=== PATIENT | male | born 1945 | race Caucasian/White ===

== ENCOUNTER → 2018-01-06 10:52 | Outpatient (CLI) | payer MEDICARE, OTHER, SELFPAY | PROVIDERS: PCP Family Medicine; Visit Provider Urology | DX: R97.20 Elevated prostate specific antigen [PSA] (principal); N40.1 Benign prostatic hyperplasia with lower urinary tract symptoms | CPT/HCPCS: 36415; 84153 ==

== ENCOUNTER → 2018-06-01 14:17 | Outpatient (CLI) | payer MEDICARE, OTHER, SELFPAY | PROVIDERS: Family Provider Family Medicine; PCP Family Medicine; Visit Provider Urology | DX: R97.20 Elevated prostate specific antigen [PSA] (principal) | CPT/HCPCS: 36415; 84153 ==

== ENCOUNTER → 2018-11-15 09:10 | Outpatient (CLI) | payer MEDICARE, OTHER, SELFPAY ==
[2018-11-15 10:22] LABS: Hematocrit 45.8 % (41-53); Hemoglobin 15.5 g/dL (13.5-17.5); Mean Corpuscular HGB Conc 33.9 % (30-36); Mean Corpuscular Hemoglobin 30.2 PG (26-34); Mean Corpuscular Volume 89.2 fL (80-100); Platelet Count 107 X10^3/uL (150-400); Red Blood Cell Count 5.13 X10^6/uL (4.5-5.9); White Blood Cell Count 4.2 X10^3/uL (4.5-11.0)
[2018-11-15 11:05] LABS: Alanine Aminotransferase 23 IU/L (21-72); Albumin 4.6 g/dL (3.5-5.0); Albumin Globulin Ratio 1.5 (1.0-2.8); Alkaline Phosphatase 60 U/L (38-126); Aspartate Aminotransferase 27 IU/L (17-59); BUN Creatinine Ratio 17.3 (6-22); Bilirubin Total 0.6 mg/dL (0.2-1.3); Blood Urea Nitrogen 19 mg/dL (9-20); Calcium 9.5 mg/dL (8.4-10.2); Carbon Dioxide 22 mmol/L (22-32); Chloride 107 mmol/L (98-107); Cholesterol 214 mg/dL (140-199); Estimated Glomerular Filt Rate > 60.0 mL/min (>60); Glucose 96 mg/dL (80-110); HDL Cholesterol 52 mg/dL (40-60); HEMOLYSIS < 15 (0-50); LDL Cholesterol Calculated 141 mg/dL (<100); Potassium 4.2 mmol/L (3.4-5.1); Sodium 140 mmol/L (137-145); Total Protein 7.6 g/dL (6.3-8.2); Triglycerides 107 mg/dL (35-150)
[2018-11-15 12:11] LABS: Free T4, Direct Thyroxine 0.88 ng/dL (0.78-2.19)
[2018-11-15 12:38] LABS: RBC Morphology Normal Morphology
== END ==
PROVIDERS: PCP Family Medicine; Visit Provider Family Medicine
DX: E03.9 Hypothyroidism, unspecified (principal); E78.5 Hyperlipidemia, unspecified; I10 Essential (primary) hypertension; I48.91 Unspecified atrial fibrillation
CPT/HCPCS: 36415; 80053; 80061; 84439; 84443; 85025

== ENCOUNTER → 2019-05-10 15:58 | Outpatient (CLI) | payer MEDICARE, OTHER, SELFPAY ==
[2019-05-10 17:22] LABS: Prostate Specific Antigen 3.26 ng/mL (0.10-4.00)
== END ==
PROVIDERS: PCP Family Medicine; Visit Provider Urology
DX: R97.20 Elevated prostate specific antigen [PSA] (principal); N40.1 Benign prostatic hyperplasia with lower urinary tract symptoms
CPT/HCPCS: 36415; 84153

== ENCOUNTER → 2019-05-14 16:48 | Outpatient (CLI) | payer MEDICARE, OTHER, SELFPAY ==
[2019-05-14 17:57] LABS: Alanine Aminotransferase 31 IU/L (<50); Albumin 4.6 g/dL (3.5-5.0); Albumin Globulin Ratio 1.8 (1.0-2.8); Alkaline Phosphatase 66 U/L (38-126); Aspartate Aminotransferase 32 IU/L (17-59); Bilirubin Total 0.3 mg/dL (0.2-1.3); Blood Urea Nitrogen 30 mg/dL (9-20); Calcium 9.7 mg/dL (8.4-10.2); Carbon Dioxide 27 mmol/L (22-32); Chloride 104 mmol/L (98-107); Estimated Glomerular Filt Rate 59.5 mL/min (>60); Globulin 2.6 g/dL (1.7-4.1); Glucose 90 mg/dL (80-110); HEMOLYSIS < 15 (0-50); Potassium 4.1 mmol/L (3.4-5.1); Sodium 140 mmol/L (137-145); Total Protein 7.2 g/dL (6.3-8.2)
== END ==
PROVIDERS: Family Provider Family Medicine; PCP Family Medicine; Visit Provider Nurse Practitioner Acute Care
DX: I48.0 Paroxysmal atrial fibrillation (principal)
CPT/HCPCS: 36415; 80053

== ENCOUNTER → 2020-05-24 07:55 | Outpatient (CLI) | payer MEDICARE, OTHER, SELFPAY ==
[2020-05-24 08:18] LABS: Bacteria Urine None Seen; RBC Urine None Seen (0-5/HPF); WBC Urine None Seen (0-5/HPF)
[2020-05-24 08:58] LABS: Appearance Urine UA CLEAR; Bilirubin Urine UA NEGATIVE (NEGATIVE); Color Urine UA YELLOW; Glucose Urine UA NEGATIVE (Negative); Ketones Urine UA NEGATIVE (NEGATIVE); Leukocyte Esterase Urine UA NEGATIVE (NEGATIVE); Nitrite Urine UA NEGATIVE (Negative); Occult Blood Urine UA TRACE-INTACT (Negative); Protein Urine UA TRACE (Negative); Urobilinogen Urine UA 0.2 E.U./dL (0.2)
[2020-05-24 09:15] LABS: Alanine Aminotransferase 610 IU/L (<50); Albumin 4.4 g/dL (3.5-5.0); Albumin Globulin Ratio 1.4 (1.0-2.8); Alkaline Phosphatase 233 U/L (38-126); Aspartate Aminotransferase 263 IU/L (17-59); Bilirubin Total 0.9 mg/dL (0.2-1.3); Blood Urea Nitrogen 15 mg/dL (9-20); C-Reactive Protein Quant 2.6 mg/dL (<1.0); Calcium 9.3 mg/dL (8.4-10.2); Carbon Dioxide 27 mmol/L (22-32); Chloride 103 mmol/L (98-107); Cholesterol 222 mg/dL (140-199); Estimated Glomerular Filt Rate > 60.0 mL/min (>60); Globulin 3.2 g/dL (1.7-4.1); Glucose 112 mg/dL (80-110); HDL Cholesterol 68 mg/dL (40-60); HEMOLYSIS < 15 (0-50); LDL Cholesterol Calculated 138 mg/dL (<100); Potassium 3.9 mmol/L (3.4-5.1); Sodium 135 mmol/L (137-145); Total Protein 7.6 g/dL (6.3-8.2); Triglycerides 82 mg/dL (35-150)
[2020-05-24 09:17] LABS: Add Manual Diff / Slide Review NO; Basophils Absolute Auto 0 /uL (0-100); Basophils Percent Auto 0.1 % (0-2); Eosinophils Absolute Auto 0 /uL (0-450); Hematocrit 44.8 % (41-53); Hemoglobin 15.4 g/dL (13.5-17.5); Lymphocytes Absolute Auto 500 /uL (1100-4500); Lymphocytes Percent Auto 11.6 % (25-40); Mean Corpuscular HGB Conc 34.5 % (30-36); Mean Corpuscular Hemoglobin 30.4 PG (26-34); Mean Corpuscular Volume 88.1 fL (80-100); Monocytes Absolute Auto 1000 /uL (0-900); Monocytes Percent Auto 20.9 % (3-14); Neutrophils Absolute Auto 3000 /uL (1500-7000); Neutrophils Percent Auto 66.4 % (50-75); Red Blood Cell Count 5.08 X10^6/uL (4.5-5.9); Red Cell Distribution Width 13.2 % (11.6-14.8); White Blood Cell Count 4.6 X10^3/uL (4.5-11.0)
[2020-05-24 09:23] LABS: Culture Indicated Urine Cult Not Indicated; Urine Comments Microscopic Normal
[2020-05-24 09:39] LABS: Prostate Specific Antigen Scrn 3.18 ng/mL (0.1-4.0)
[2020-05-24 09:40] LABS: TSH w/ Reflex to FT4 6.39 uIU/mL (0.47-4.68)
[2020-05-24 10:02] LABS: Platelet Count 69 X10^3/uL (150-400)
[2020-05-24 11:09] LABS: Erythrocyte Sedimentation Rate 1 MM/HR (0-15)
[2020-05-24 13:30] LABS: Free T4, Direct Thyroxine 0.98 ng/dL (0.78-2.19)
== END ==
PROVIDERS: Family Provider Family Medicine; PCP Family Medicine; Referring Provider Family Medicine; Visit Provider Family Medicine
DX: E03.9 Hypothyroidism, unspecified (principal); E78.5 Hyperlipidemia, unspecified; Z12.5 Encounter for screening for malignant neoplasm of prostate; I10 Essential (primary) hypertension; I48.91 Unspecified atrial fibrillation; R50.9 Fever, unspecified
CPT/HCPCS: 36415; 80053; 80061; 81001; 84439; 84443; 85025; 85651; 86140; G0103

== ENCOUNTER → 2020-05-27 10:24 | Outpatient (CLI) | payer MEDICARE, OTHER, SELFPAY ==
--- NOTE | 2020-05-27 12:08 | DI.CT.S_ITS ---
PROCEDURE: CT ABDOMEN PELVIS W CON INDICATIONS: abdominal pain,bloating, chills TECHNIQUE: After the administration of oral and intravenous contrast, 5 mm thick sections acquired from the diaphragms to the symphysis. 5 mm thick coronal and sagittal reformats were performed. For radiation dose reduction, the following was used: automated exposure control, adjustment of mA and/or kV according to patient size. COMPARISON: None. FINDINGS: Image quality: Excellent. ABDOMEN: Lung bases: Lung bases are clear. Heart size is normal. Solid organs: Liver is normal in size and enhancement. Gallbladder appears largely contracted but within the gallbladder lumen there appears to be both a combination of sludge and stones, without inflammation Biliary system is non-dilated. Pancreas enhances normally. Spleen is normal in size and enhancement. No adrenal nodules. Kidneys are normal in size and enhancement, without hydronephrosis. Scattered renal cortical cysts, no solid renal mass lesion or calculus is found. Peritoneum and bowel: Stomach, small bowel, and colon loops are normal in caliber and wall thickness. No free fluid or air. Nodes and vessels: No retroperitoneal or mesenteric adenopathy. Aorta and inferior vena cava are normal in caliber. Miscellaneous: No ventral hernias. PELVIS: Genitourinary: Bladder wall thickness is normal. Miscellaneous: No inguinal hernias or adenopathy. Bones: No suspicious bony lesions. No vertebral body compression fractures. IMPRESSION: Contracted gallbladder which contains stones and sludge, but without definite evidence of acute cholecystitis or biliary obstruction. Several scattered simple appearing water density renal cortical cysts are present bilaterally. No urinary tract stone or urinary tract infection is found. Throughout the abdomen and pelvis a source reported pain is not identified. Dictated by: Yaron Benitez M.D. on 05/27/2020 at 13:29 Approved by: Yaron Benitez M.D. on 05/27/2020 at 13:33
== END ==
PROVIDERS: Family Provider Family Medicine; PCP Family Medicine; Referring Provider Family Medicine; Visit Provider Family Medicine
DX: R14.0 Abdominal distension (gaseous) (principal); R68.83 Chills (without fever); K21.9 Gastro-esophageal reflux disease without esophagitis; K80.20 Calculus of gallbladder without cholecystitis without obstruction; N28.1 Cyst of kidney, acquired
CPT/HCPCS: 74177; Q9967

== ENCOUNTER → 2020-05-28 15:44 | Outpatient (CLI) | payer MEDICARE, OTHER, SELFPAY ==
[2020-05-28 17:50] LABS: Erythrocyte Sedimentation Rate 21 MM/HR (0-15)
[2020-05-28 18:21] LABS: Alanine Aminotransferase 241 IU/L (<50); Albumin 4.3 g/dL (3.5-5.0); Albumin Globulin Ratio 1.3 (1.0-2.8); Alkaline Phosphatase 516 U/L (38-126); Amylase 68 U/L (30-110); Aspartate Aminotransferase 87 IU/L (17-59); Bilirubin Total 0.2 mg/dL (0.2-1.3); Bilirubin Unconjugated 0.3 mg/dL (0.0-1.1); C-Reactive Protein Quant 0.8 mg/dL (<1.0); Globulin 3.2 g/dL (1.7-4.1); HEMOLYSIS < 15 (0-50); Lipase 155 U/L (23-300); Total Protein 7.5 g/dL (6.3-8.2)
[2020-05-28 18:51] LABS: Ferritin 53 ng/mL (18-464)
[2020-05-29 08:08] LABS: Ceruloplasmin 32.5 mg/dL (16.0-31.0); HBsAg Screen Negative (Negative); Hepatitis A Antibody IgM Negative (Negative); Hepatitis B Core Antibody IgM Negative (Negative); Hepatitis C Antibody <0.1 s/co ratio (0.0-0.9)
[2020-05-30 14:08] LABS: ANA Screen, IFA Negative (.)
== END ==
PROVIDERS: Family Provider Family Medicine; PCP Family Medicine; Referring Provider Family Medicine; Visit Provider Family Medicine
DX: K82.0 Obstruction of gallbladder (principal); R74.8 Abnormal levels of other serum enzymes; R50.9 Fever, unspecified
CPT/HCPCS: 36415; 80074; 80076; 82150; 82390; 82728; 83690; 85651; 86038; 86140

== ENCOUNTER → 2020-05-30 06:58 | Outpatient (CLI) | payer MEDICARE, OTHER, SELFPAY ==
--- NOTE | 2020-05-30 06:59 | DI.US.S_ITS ---
PROCEDURE: US ABDOMEN COMPLETE INDICATIONS: ELEVATED LIVER ENZYMES; CONTRACTED GALLBLADDER ON CT TECHNIQUE: Real-time scanning was performed of the abdominal and retroperitoneal organs, with image documentation. COMPARISON: None. FINDINGS: Liver: Liver is normal in size and homogeneous in echotexture. Gallbladder: The gallbladder contains numerous stones, including a nonmobile stone measuring approximately 7 mm within the gallbladder neck area. The gallbladder wall however is normal in thickness at 2.5 mm. Biliary ducts: Intrahepatic bile ducts are non-dilated. Extrahepatic bile duct caliber measures 4.9 mm. Normal is 6-7 mm or less in diameter, or 10 mm or less post-cholecystectomy. Pancreas: Visualized portions of the pancreas are sonographically normal. Spleen: Spleen is normal in size and homogeneous in echotexture. Kidneys: Kidneys are normal in size and echotexture. Right kidney measures 12.6 cm long; left kidney measures 13.0 cm long. No hydronephrosis or nephrolithiasis. No solid masses. The largest cyst is present on the right at the mid kidney level, measuring up to 5.6 cm. Aorta: Visualized aorta is normal in caliber at less than 3 cm. Iliacs: Proximal common iliac arteries are normal in caliber at less than 2.5 cm. IVC: Intrahepatic inferior vena cava is patent. Miscellaneous: No free abdominal fluid. IMPRESSION: Multiple stones are identified within the gallbladder lumen, but there is no associated biliary distension or gallbladder wall thickening. Note is made of a relatively large but simple appearing right mid renal cortical cyst measuring up to 5.6 cm. No nephrolithiasis is found. Dictated by: Yaron Benitez M.D. on 05/30/2020 at 10:57 Approved by: Yaron Benitez M.D. on 05/30/2020 at 11:00
== END ==
PROVIDERS: Family Provider Family Medicine; PCP Family Medicine; Referring Provider Family Medicine; Visit Provider Family Medicine
DX: K80.20 Calculus of gallbladder without cholecystitis without obstruction (principal); N28.1 Cyst of kidney, acquired; R74.8 Abnormal levels of other serum enzymes
CPT/HCPCS: 76700

== ENCOUNTER → 2020-06-30 11:24 | Outpatient (CLI) | payer MEDICARE, OTHER, SELFPAY ==
[2020-06-30 12:27] LABS: COVID19 -Nasal RAPID Negative (Negative)
== END ==
PROVIDERS: Family Provider Family Medicine; PCP Family Medicine; Visit Provider Surgery
DX: Z01.812 Encounter for preprocedural laboratory examination (principal); Z20.822 Contact with and (suspected) exposure to COVID-19
CPT/HCPCS: 87635; C9803

== ENCOUNTER 2020-07-01 07:59 | Day surgery (SDC) | payer MEDICARE, OTHER, SELFPAY ==
[2020-07-01] VITALS (12 sets, daily range): BP systolic 114–177; BP diastolic 79–106; PULSE 52–74; RESP 12–96; TEMP 36.2–36.8; O2SAT 19–98; BMI 27.1
--- NOTE | 2020-07-01 | PATH_ITS ---
[facility] Accession Number: [id number] . 01 Material submitted: . gallbladder - GALLBLADDER . 01 Clinical history: . LAB LARRY . 02 Diagnosis: Gallbladder, Cholecystectomy: Cholelithiasis with chronic active cholecystitis. No evidence of neoplasm. [facility] 07/03/2020 1338 Local . 02 Electronically signed: . Aleksander Baires MD, PhD, Pathologist NPI- [id number] . 01 Gross description: . The specimen is received in formalin, labeled gallbladder and consists of a 7.5 x 3.0 x 3.0 cm intact gallbladder with a 0.5 cm in diameter cystic duct. The serosa is pirce-pink and smooth. Opening reveals green viscous bile with multiple black-green cholelith fragments ranging from 0.1 to 1.0 cm, the largest of which is lodged within the neck of the specimen. The mucosa is price-pink and velvety and the wall thickness measures 0.2 cm. [employer] sections are submitted to include the en face cystic duct margin (blue) in cassette A1. ([id number]) /MRV 07/02/2020 1057 Local . 02 Pathologist provided ICD-10: K80.60, K81.2 . 02 CPT . 903983 Performed at: 01 [facility] [address], [place], [place] [id number] MD Dez Francois MD Phone: [phone] Performed at: 02 [facility] [address] [place], [place] [id number] MD Shanel Obsorn MD Phone: [phone]
[2020-07-01] MEDS: ACETAMINOPHEN 325 MG TABLET 975 MG PO (08:30)
[2020-07-01] MEDS: LACTATED RINGERS 1,000 ML 42 ML IV (08:31)
--- NOTE | 2020-07-01 09:15 | PM.PREOP ---
Pre-operative Note Interval Note History & Physical reviewed/Exam performed by Physician: Yes Changes to H&P: No
[2020-07-01] MEDS: CEFAZOLIN 2 GM/100 ML FROZ.PIGGY IV (09:34)
--- NOTE | 2020-07-01 09:58 | SUR.OPER ---
Supine on padded OR bed, head on pillow, safety belt at thigh, left arm padded and tucked at side. Right arm secured on padded arm oard <90 degrees abduction. Legs uncrossed. Padded footboard in place. Tape over blanket to secure lower legs.
[2020-07-01] MEDS: BUPIVACAINE 0.25% (PF) VIAL 30 ML INJ (10:04)
[2020-07-01] MEDS: LACTATED RINGERS 1,000 ML 100 ML IV (10:52)
[2020-07-01] MEDS: hydrOXYzine 50 MG/ML INJ 25 MG IM (11:18)
[2020-07-01] MEDS: HYDROMORPHONE 2 MG INJ IV ×2 (11:18→11:31)
--- NOTE | 2020-07-01 11:27 | P.OP_ITS ---
Operative Date/Time/Diagnoses Date of procedure: 07/01/20 Time of procedure: 11:27 Pre-op diagnosis: biliary colic Post-op diagnosis: same Procedure & Clinicians Procedure: laparoscopic cholecystectomy Same procedure as scheduled: Yes Indications: 74M with biliary colic for elective cholecystectomy Surgeon: Marcus Figueroa Anesthesia Type: General Operative Notes Findings: Hydrops gallbladder intra hepatic, chronic cholecystitis, surface oozing. Specimen(s): other (gallbladder) Estimated Blood Loss (mL): 150 Procedure in detail: The patient was placed supine on the table and bilateral lower extremity compression devices were applied. Anesthesia was induced they were intubated with an endotracheal tube and received 2g of Ancef. A time-out was performed. They were prepped and draped in sterile fashion. An infraumbilical incision was made, the umbilical stalk was elevated and the fascia was sharply incised entering the abdomen atraumatically. A blunt tip 12mm balloon trocar was then inserted, pneumoperitoneum was established and inspection of the abdomen demonstrated no evidence of injury. They were placed head up and right side up and then a 11 mm port was placed high in the epigastrium and two 5mm in the right upper quadrant. The gallbladder was intra hepatic and hydrops. It was percutaneously drained to facilitate its mobility. The gallbladder was grasped by the fundus and retracted over the liver and retracted laterally by the infundibulum. Using electrocautery the lateral plane between the gallbladder and the liver was opened towards the fundus. The gallbladder was then retracted laterally and the medial plane was developed in the same manner. With the gallbladder mobilized the bottom of the cystic plate was visualized. The hepatocystic triangle was meticulosly skeletonized using blunt dissection from both the front and the back. Only two structures were then clearly seen entering the gallbladder the cystic duct and the cystic artery. With the critical view of safety fully established the cystic duct was clipped twice proximally and once distally using the 10 mm clip applied under direct visualization and then sharply divided. The cystic artery was divided in the same fashion. The gallbladder was removed from the liver bed using electro cautery. The surface of the liver was notably oozy suspect this was secondary to the supplement [place] and his thrombocytopenia. Hemostasis was achieved with electrocautery. The abdomen was irrigated with sterile saline and inspe ction was made that showed the clips in good position. The specimen was removed using Endo-Catch. The abdomen was desufflated. The umbilical fascia was closed with 0 Vicryl in a [id number] fashion under direct visualization. Skin incisions were irrigated and closed with 4-0 Monocryl. 30 ml of 0.25% bupivacaine was infiltrated into the subcutaneous tissue of the incisions. The wounds were sealed with Dermabond. Patient emerged from anesthesia was extubated and transferred to recovery in stable condition. The sponge and instrument count at the end of the operation was correct. Complications: none Post-operative Condition: stable Disposition: same day surgery
[2020-07-01] MEDS: ONDANSETRON 4 MG/2 ML INJ IV (11:34)
[2020-07-01] MEDS: LORazepam 2 MG/ML INJ 0.25 MG IV (11:34)
[2020-07-01] MEDS: METOCLOPRAMIDE 10 MG/2 ML INJ IV (11:34)
[2020-07-01] MEDS: fentaNYL 100 MCG/2 ML INJ IV (11:44)
[2020-07-01] MEDS: OXYCODONE IR 5 MG TABLET PO (13:10)
== END 2020-07-01 13:15 | disposition home or self-care (01) ==
PROVIDERS: Family Provider Family Medicine; PCP Family Medicine; Referring Provider Family Medicine; Visit Provider Surgery
PROC: 0FT44ZZ Resection of Gallbladder, Percutaneous Endoscopic Approach (ICD-10-PCS; CPT 47562; principal; 2020-07-01 09:15)
DX: K80.10 Calculus of gallbladder with chronic cholecystitis without obstruction (principal); K82.1 Hydrops of gallbladder; I10 Essential (primary) hypertension; E78.5 Hyperlipidemia, unspecified
CPT/HCPCS: 47562; J0330; J0690; J1100; J1170; J2060; J2250; J2405; J2704; J2765; J3010; J3410

== ENCOUNTER → 2020-07-17 10:53 | Outpatient (CLI) | payer MEDICARE, OTHER, SELFPAY ==
[2020-07-17 12:00] LABS: Basophils Absolute Auto 0 /uL (0-100); Basophils Percent Auto 0.4 % (0-2); Eosinophils Absolute Auto 100 /uL (0-450); Eosinophils Percent Auto 1.4 % (2-4); Hematocrit 41.6 % (41-53); Hemoglobin 14.2 g/dL (13.5-17.5); Lymphocytes Absolute Auto 1700 /uL (1100-4500); Lymphocytes Percent Auto 32.5 % (25-40); Mean Corpuscular HGB Conc 34.2 % (30-36); Mean Corpuscular Hemoglobin 30.2 PG (26-34); Mean Corpuscular Volume 88.4 fL (80-100); Monocytes Absolute Auto 700 /uL (0-900); Monocytes Percent Auto 13.4 % (3-14); Neutrophils Absolute Auto 2800 /uL (1500-7000); Neutrophils Percent Auto 52.3 % (50-75); Red Blood Cell Count 4.71 X10^6/uL (4.5-5.9); Red Cell Distribution Width 13.5 % (11.6-14.8); White Blood Cell Count 5.3 X10^3/uL (4.5-11.0)
[2020-07-17 12:02] LABS: Add Manual Diff / Slide Review SLIDE REVIEW
[2020-07-17 12:24] LABS: Alanine Aminotransferase 44 IU/L (<50); Albumin 4.3 g/dL (3.5-5.0); Albumin Globulin Ratio 1.7 (1.0-2.8); Alkaline Phosphatase 128 U/L (38-126); Aspartate Aminotransferase 30 IU/L (17-59); Bilirubin Total 0.3 mg/dL (0.2-1.3); Bilirubin Unconjugated 0.4 mg/dL (0.0-1.1); Globulin 2.6 g/dL (1.7-4.1); HEMOLYSIS < 15 (0-50); Total Protein 6.9 g/dL (6.3-8.2)
[2020-07-17 12:43] LABS: Platelet Count 110 X10^3/uL (150-400); RBC Morphology Normal Morphology
== END ==
PROVIDERS: Family Provider Family Medicine; PCP Family Medicine; Referring Provider Family Medicine; Visit Provider Family Medicine
DX: R74.8 Abnormal levels of other serum enzymes (principal); D69.6 Thrombocytopenia, unspecified
CPT/HCPCS: 36415; 80076; 85025

== ENCOUNTER → 2021-01-09 09:32 | Outpatient (CLI) | payer MEDICARE, OTHER, SELFPAY ==
[2021-01-09 16:03] LABS: Prostate Specific Antigen 3.01 ng/mL (0.10-4.00)
== END ==
PROVIDERS: Family Provider Family Medicine; PCP Family Medicine; Referring Provider Urology; Visit Provider Urology
DX: R97.20 Elevated prostate specific antigen [PSA] (principal)
CPT/HCPCS: 36415; 84153

== ENCOUNTER → 2021-04-16 08:42 | Outpatient (CLI) | payer MEDICARE, OTHER, SELFPAY ==
[2021-04-16 10:04] LABS: Cholesterol 234 mg/dL (140-199); HDL Cholesterol 65 mg/dL (40-60); LDL Cholesterol Calculated 134 mg/dL (<100); Triglycerides 173 mg/dL (35-150)
== END ==
PROVIDERS: Family Provider Family Medicine; PCP Family Medicine; Referring Provider Physician Assistant; Visit Provider Physician Assistant
DX: E78.5 Hyperlipidemia, unspecified (principal)
CPT/HCPCS: 36415; 80061

== ENCOUNTER → 2021-08-03 08:43 | Outpatient (CLI) | payer MEDICARE, OTHER, SELFPAY ==
[2021-08-03 10:17] LABS: BUN Creatinine Ratio 18.2 (6-22); Blood Urea Nitrogen 16 mg/dL (9-20); Calcium 9.1 mg/dL (8.4-10.2); Carbon Dioxide 26 mmol/L (22-32); Chloride 104 mmol/L (98-107); Cholesterol 227 mg/dL (140-199); Estimated Glomerular Filt Rate > 60.0 mL/min (>60); Glucose 96 mg/dL (80-110); HDL Cholesterol 70 mg/dL (40-60); HEMOLYSIS < 15 (0-50); LDL Cholesterol Calculated 135 mg/dL (<100); Potassium 4.5 mmol/L (3.4-5.1); Sodium 137 mmol/L (137-145); Triglycerides 111 mg/dL (35-150)
== END ==
PROVIDERS: Family Provider Family Medicine; PCP Family Medicine; Referring Provider Physician Assistant; Visit Provider Physician Assistant
DX: I10 Essential (primary) hypertension (principal); E78.2 Mixed hyperlipidemia
CPT/HCPCS: 36415; 80048; 80061

== ENCOUNTER → 2021-10-28 09:19 | Outpatient (CLI) | payer MEDICARE, OTHER, SELFPAY ==
[2021-10-28 10:16] LABS: Add Manual Diff / Slide Review NO; Basophils Absolute Auto 0 /uL (0-100); Basophils Percent Auto 0.4 % (0-2); Eosinophils Absolute Auto 100 /uL (0-450); Eosinophils Percent Auto 1.7 % (2-4); Hematocrit 40.3 % (41-53); Hemoglobin 13.8 g/dL (13.5-17.5); Lymphocytes Absolute Auto 1400 /uL (1100-4500); Lymphocytes Percent Auto 24.9 % (25-40); Mean Corpuscular HGB Conc 34.1 % (30-36); Mean Corpuscular Hemoglobin 29.8 PG (26-34); Mean Corpuscular Volume 87.1 fL (80-100); Monocytes Absolute Auto 700 /uL (0-900); Monocytes Percent Auto 13.2 % (3-14); Neutrophils Absolute Auto 3400 /uL (1500-7000); Neutrophils Percent Auto 59.8 % (50-75); Platelet Count 123 X10^3/uL (150-400); Red Blood Cell Count 4.63 X10^6/uL (4.5-5.9); Red Cell Distribution Width 15.3 % (11.6-14.8); White Blood Cell Count 5.6 X10^3/uL (4.5-11.0)
[2021-10-28 10:33] LABS: Erythrocyte Sedimentation Rate 41 MM/HR (0-15)
[2021-10-28 10:39] LABS: Alanine Aminotransferase 203 IU/L (<50); Albumin 3.9 g/dL (3.5-5.0); Albumin Globulin Ratio 1.4 (1.0-2.8); Alkaline Phosphatase 763 U/L (38-126); Aspartate Aminotransferase 141 IU/L (17-59); BUN Creatinine Ratio 15.9 (6-22); Bilirubin Total 1.9 mg/dL (0.2-1.3); Blood Urea Nitrogen 17 mg/dL (9-20); C-Reactive Protein Quant 2.9 mg/dL (<1.0); Calcium 9.4 mg/dL (8.4-10.2); Carbon Dioxide 22 mmol/L (22-32); Chloride 107 mmol/L (98-107); Estimated Glomerular Filt Rate > 60 mL/min (>60); Globulin 2.7 g/dL (1.7-4.1); Glucose 111 mg/dL (80-110); HEMOLYSIS < 15 (0-50); Lactate Dehydrogenase 412 U/L (313-618); Potassium 4.1 mmol/L (3.4-5.1); Sodium 140 mmol/L (137-145); Total Protein 6.6 g/dL (6.3-8.2)
[2021-10-28 11:01] LABS: TSH w/ Reflex to FT4 3.16 uIU/mL (0.47-4.68)
== END ==
PROVIDERS: Family Provider Family Medicine; PCP Family Medicine; Referring Provider Internal Medicine; Visit Provider Internal Medicine
DX: I10 Essential (primary) hypertension (principal); D69.6 Thrombocytopenia, unspecified; Z86.79 Personal history of other diseases of the circulatory system
CPT/HCPCS: 36415; 80053; 83615; 84443; 85025; 85651; 86140

== ENCOUNTER 2021-11-01 11:49 | Emergency (ER) | payer MEDICARE, OTHER, SELFPAY ==
[2021-11-01 12:09] VITALS: BP 157/90; PULSE 70; RESP 19; TEMP 36.9; O2SAT 99; BMI 25.8
--- NOTE | 2021-11-01 12:15 | ED.GENADULT ---
HPI - General Adult General Chief complaint: Recheck/Abnormal Lab/Rx Stated complaint: liver enzymes are high/vomited Time Seen by Provider: 11/01/21 12:15 History of Present Illness HPI narrative: 75-year-old gentleman with a history of hypertension, bladder dysfunction with a year of Antunez catheter use due to BPH, atrial fibrillation post ablation who presents with recurrent episodes of abdominal pain. He presented to his primary care physician complaining of increasing pruritus with no obvious source. Lab work was done on October 28 that showed elevated bili AST, ALT, alk-phos and C reactive protein. He comes into the emergency room for further evaluation of follow-up. He complains that he has been having recurrent episodes of squeezing severe mid abdominal pain that will sometimes be associated with nonbloody emesis. He states that he has been having normal bowel movements. He denies any fevers, cough, chest pain, palpitations. Notes that he has had his gallbladder removed previously. Related Data Home Medications Medication Instructions Recorded Confirmed finasteride 5 mg tablet 5 mg PO QDAY ##0 04/09/16 10/23/21 cholecalciferol (vitamin D3) 50 50 mcg PO DAILY 06/04/20 10/23/21 mcg (2,000 unit) capsule multivitamin 1 tab PO DAILY 06/04/20 10/23/21 niacinamide 500 mg tablet 500 mg PO DAILY 03/17/21 10/23/21 Lacto.acidophilus-Bif.animalis 1 cap PO DAILY 10/23/21 10/23/21 [Daily Probiotic] magnesium oxide 400 mg PO DAILY 10/23/21 10/23/21 Previous Rx's Medication Instructions Recorded amlodipine 2.5 mg-benazepril 10 mg 1 cap PO DAILY #90 caps 04/21/21 capsule nirmatrelvir 300 mg (150 mg x See Rx Instructions PO .COMPLEX 10/23/21 2)-ritonavir 100 mg tablet (EUA) #30 tabs (Paxlovid 300 mg () Allergies Allergy/AdvReac Type Severity Reaction Status Date / Time lobster AdvReac Mild Vomiting Uncoded 11/01/21 12:16 Review of Systems Review of Systems Narrative: Remainder of complete review of systems is otherwise unremarkable except for that included in the HPI. Patient History Medical History Atrial fibrillation Benign prostatic hyperplasia (01/17/15) Chills Cough Eczematous dermatitis Enlarged prostate Fever Gallbladder disease History of UTI Hypertension (01/17/15) Hypothyroidism (01/17/15) Hypothyroidism Shortness of breath Transaminitis Urinary retention Surgical History H/O cardiac radiofrequency ablation (~08/2017) H/O knee surgery (~1959) History of tonsillectomy (~1954) Family History Brother Age: 78 Heart disease Hypertension High cholesterol Stroke Father Heart disease High cholesterol Grandfather Stroke Grandmother Dementia Mother Heart disease Hypertension High cholesterol Grandmother TB (tuberculosis) Alcoholic Sister Age: 76 Hypertension Sister Age: 63 Hypertension Social History marital status: household members: spouse Smoking Status: Never smoker alcohol intake: never substance use type: does not use Smoking Status: Never smoker Substance Use Type: does not use Exam Initial Vital Signs Initial Vital Signs: Vital Signs Temperature 98.4 F 11/01/21 12:09 Pulse Rate 70 11/01/21 12:09 Respiratory Rate 19 11/01/21 12:09 Blood Pressure 157/90 H 11/01/21 12:09 Pulse Oximetry 99 11/01/21 12:09 Oxygen Delivery Method 11/01/21 12:09 General: Healthy appearing, in no acute distress. Able to give a complete and coherent history. Well-nourished well-developed HEENT: Moist mucous membranes, normal sclera with reactive pupils, Neck: No JVD, supple Respiratory: Lungs are clear to auscultation, no wheezing no rales no rhonchi. Full and symmetrical air movement Cardiac: Regular rate and rhythm no murmurs no bruits Abdomen: Soft, nontender, positive hepatomegaly without tenderness, good bowel tones, no flank pain Skin: Warm and dry, no rashes (mild excoriated areas from scratching), no obvious jaundice mild superficial telangiectasias Neurologic: Grossly neurologically intact with no obvious asymmetries or abnormalities Extremities: No trauma, well perfused Psych: Cooperative, appropriate insight and affect Course Orders Ordered: Discontinued Medications Hydromorphone HCl (Hydromorphone 0.5 Mg Inj) 0.5 mg IV Q15MIN PRN PRN Reason: Pain, Last Admin: 11/01/21 15:11 Dose: 0.5 mg Documented By: Admin: 11/01/21 14:46 Dose: 0.5 mg Documented By: CTS Hydromorphone HCl (Hydromorphone 0.5 Mg Inj) 1 mg IV Q15MIN PRN PRN Reason: Pain, Last Admin: 11/01/21 17:16 Dose: 1 mg Documented By: Admin: 11/01/21 16:49 Dose: 1 mg Documented By: Admin: 11/01/21 16:07 Dose: 1 mg Documented By: Admin: 11/01/21 15:31 Dose: 1 mg Documented By: CTS Ceftriaxone Sodium 2,000 mg/ (Sodium Chloride) 100 mls @ 200 mls/hr IV NOW ONE Stop: 11/01/21 13:22 Last Infusion: 11/01/21 15:23 Dose: 0 mls/hr Documented By: Admin: 11/01/21 14:46 Dose: 200 mls/hr Documented By: CTS Sodium Chloride (Normal Saline 0.9%) 1,000 mls @ 150 mls/hr IV CONT SHIELA Last Infusion: 11/01/21 17:16 Dose: 150 mls/hr Documented By: Admin: 11/01/21 14:46 Dose: 150 mls/hr Documented By: CTS Ondansetron HCl (Ondansetron 4 Mg/2 Ml Inj) 4 mg IV NOW ONE Stop: 11/01/21 13:22 Last Admin: 11/01/21 13:35 Dose: 4 mg Documented By: CTS Vital Signs Vital signs: Vital Signs - 8 hr 11/01/21 12:09 Temperature 98.4 F Pulse Rate 70 Respiratory Rate 19 Blood Pressure 157/90 H Pulse Oximetry 99 Oxygen Delivery Method Room Air Medical Decision Making Lab Data Result diagrams: 11/01/21 12:30 11/01/21 12:30 Labs: Lab Results 11/01/21 11/01/21 11/01/21 Range/Units 12:30 12:30 12:30 WBC 11.5 H (4.5-11.0) X10^3/uL RBC 4.87 (4.5-5.9) X10^6/uL Hgb 14.5 (13.5-17.5) g/dL Hct 42.0 (41-53) % MCV 86.2 (80-100) fL MCH 29.7 (26-34) PG MCHC 34.4 (30-36) % RDW 15.0 H (11.6-14.8) % Plt Count 142 L (150-400) X10^3/uL Neut % (Auto) 75.3 H (50-75) % Lymph % (Auto) 6.6 L (25-40) % [place] % (Auto) 17.5 H (3-14) % Eos % (Auto) 0.3 L (2-4) % Baso % (Auto) 0.3 (0-2) % Neut # (Auto) 8700 H (7973-0269) /uL Lymph # (Auto) 800 L (0302-6457) /uL [place] # (Auto) 2000 H (0-900) /uL Eos # (Auto) 0 (0-450) /uL Baso # (Auto) 0 (0-100) /uL Sodium 139 (137-145) mmol/L Potassium 3.9 (3.4-5.1) mmol/L Chloride 104 (98-107) mmol/L Carbon Dioxide 26 (22-32) mmol/L BUN 19 (9-20) mg/dL Creatinine 1.10 (0.66-1.25) mg/dL Estimated GFR > 60 (>60) mL/min BUN/Creatinine Ratio 17.3 (6-22) Glucose 133 H (80-110) mg/dL Calcium 9.3 (8.4-10.2) mg/dL Magnesium (1.6-2.3) mg/dL Total Bilirubin 3.2 H (0.2-1.3) mg/dL AST 185 H (17-59) IU/L ALT 254 H (<50) IU/L Alkaline Phosphatase 746 H (38-126) U/L Total Protein 7.7 (6.3-8.2) g/dL Albumin 4.2 (3.5-5.0) g/dL Globulin 3.5 (1.7-4.1) g/dL Albumin/Globulin Ratio 1.2 (1.0-2.8) Amylase 487 H (30-110) U/L Lipase Cancelled SARS-CoV-2 (PCR) (Negative) 11/01/21 11/01/21 Range/Units 12:30 13:20 WBC (4.5-11.0) X10^3/uL RBC (4.5-5.9) X10^6/uL Hgb (13.5-17.5) g/dL Hct (41-53) % MCV (80-100) fL MCH (26-34) PG MCHC (30-36) % RDW (11.6-14.8) % Plt Count (150-400) X10^3/uL Neut % (Auto) (50-75) % Lymph % (Auto) (25-40) % [place] % (Auto) (3-14) % Eos % (Auto) (2-4) % Baso % (Auto) (0-2) % Neut # (Auto) (6530-3564) /uL Lymph # (Auto) (2443-8000) /uL [place] # (Auto) (0-900) /uL Eos # (Auto) (0-450) /uL Baso # (Auto) (0-100) /uL Sodium (137-145) mmol/L Potassium (3.4-5.1) mmol/L Chloride (98-107) mmol/L Carbon Dioxide (22-32) mmol/L BUN (9-20) mg/dL Creatinine (0.66-1.25) mg/dL Estimated GFR (>60) mL/min BUN/Creatinine Ratio (6-22) Glucose (80-110) mg/dL Calcium (8.4-10.2) mg/dL Magnesium 2.1 (1.6-2.3) mg/dL Total Bilirubin (0.2-1.3) mg/dL AST (17-59) IU/L ALT (<50) IU/L Alkaline Phosphatase (38-126) U/L Total Protein (6.3-8.2) g/dL Albumin (3.5-5.0) g/dL Globulin (1.7-4.1) g/dL Albumin/Globulin Ratio (1.0-2.8) Amylase (30-110) U/L Lipase 4680 H SARS-CoV-2 (PCR) Negative (Negative) Imaging Data MRCP: Radiologist's Impression: FINDINGS:? Image quality:? Excellent.? ? Lung bases:? No basal pleural effusions.? Heart size is normal.? ? Solid organs:? Liver is normal in size and enhancement.? Gallbladder Tho surgically absent or contracted.? Common bile duct is dilated at 1.3 cm.? Several distal CBD stones measure up to is 7.5 mm.? Mild intrahepatic biliary ductal dilatation noted as well.? ? Pancreas is normal in morphology.? Spleen is normal in size and enhancement.? No adrenal nodules.? Both kidneys demonstrate normal size and enhancement, without hydronephrosis.? Multiple bilateral renal cysts measure up to 6.6 cm on the right ? Nodes and vessels:? No retroperitoneal or mesenteric adenopathy by size criteria.? Aorta and inferior vena cava are normal in size.? ? Bowel and peritoneum:? Unenhanced bowel loops are normal in caliber.? No free fluid.? ? Bones and soft tissues:? No ventral hernias.? Bone marrow is normal in overall signal.? IMPRESSION:? ? Choledocholithiasis and dilated CBD duct.? CBD measures up to 1.3 cm, and several distal CBD stones measure up to 7.5 mm ? Stable bilateral renal cysts without hydronephrosis. ? o ? ? ? Approved by: Adrian Goldsmith M.D. on 11/01/2021 at 13:52? [facility] Narrative Medical decision making narrative: 75-year-old gentleman with increasing abdominal pain and elevated liver function studies comes in today for further evaluation. MRCP indicates choledocholithiasis and dilated common bile duct measuring 1.3 cm and several distal common duct stones measuring up to 7.5 mm. Elevated lipase indicates pancreatitis as well. No evidence of sepsis and he is hemodynamically stable. He is post cholecystectomy a number of years ago. Will need ERCP and hospitalization. Bed is available at [facility] in [place] and he spoke with Dr. Isaiah Monge, gastroenterology who is available for ERCP to consult on the patient this afternoon. Will talk with the hospitalist service and arrange transport to [facility] for definitive treatment. 4:14pm Dr Shetty, hospitalist [facility] accepts patient. Will wait for bed availablity and arrange transport. Pain continues and briefly responds to IV dilaudid. Discharge Plan Departure Patient Disposition: [facility] Clinical Impression: Acute pancreatitis due to calculus of common bile duct Choledocholithiasis with obstruction Qualifiers: Cholecystitis presence: without cholecystitis Qualified Code(s): K80.51 - Calculus of bile duct without cholangitis or cholecystitis with obstruction Prescriptions: No Action amlodipine-benazepril 2.5-10 mg capsule 1 cap PO DAILY Qty: 90 3RF niacinamide 500 mg tablet 500 mg PO DAILY finasteride 5 MG tablet 5 mg PO QDAY Qty: 0 Paxlovid (EUA) 150 mg x 2- 100 mg tablet See Rx Instructions PO .COMPLEX Qty: 30 0RF Rx Instructions: take TWO 150 mg tablets of nirmatrelvir with ONE 100 mg tablet of ritonavir twice daily for 5 days PO magnesium oxide 400 mg magnesium tablet 400 mg PO DAILY Lacto.acidophilus-Bif.animalis [Daily Probiotic] 1 cap PO DAILY cholecalciferol (vitamin D3) 50 mcg (2,000 unit) capsule 50 mcg PO DAILY multivitamin Tablet 1 tab PO DAILY Referrals: Emile Valdes MD [Primary Care Provider] -
[2021-11-01 12:41] LABS: Add Manual Diff / Slide Review NO; Basophils Absolute Auto 0 /uL (0-100); Basophils Percent Auto 0.3 % (0-2); Eosinophils Absolute Auto 0 /uL (0-450); Eosinophils Percent Auto 0.3 % (2-4); Hemoglobin 14.5 g/dL (13.5-17.5); Lymphocytes Absolute Auto 800 /uL (1100-4500); Lymphocytes Percent Auto 6.6 % (25-40); Mean Corpuscular HGB Conc 34.4 % (30-36); Mean Corpuscular Hemoglobin 29.7 PG (26-34); Mean Corpuscular Volume 86.2 fL (80-100); Monocytes Absolute Auto 2000 /uL (0-900); Monocytes Percent Auto 17.5 % (3-14); Neutrophils Absolute Auto 8700 /uL (1500-7000); Neutrophils Percent Auto 75.3 % (50-75); Platelet Count 142 X10^3/uL (150-400); Red Blood Cell Count 4.87 X10^6/uL (4.5-5.9); White Blood Cell Count 11.5 X10^3/uL (4.5-11.0)
[2021-11-01 12:58] LABS: Amylase 487 U/L (30-110); Magnesium 2.1 mg/dL (1.6-2.3)
[2021-11-01 12:59] LABS: Alanine Aminotransferase 254 IU/L (<50); Albumin 4.2 g/dL (3.5-5.0); Albumin Globulin Ratio 1.2 (1.0-2.8); Alkaline Phosphatase 746 U/L (38-126); Aspartate Aminotransferase 185 IU/L (17-59); BUN Creatinine Ratio 17.3 (6-22); Bilirubin Total 3.2 mg/dL (0.2-1.3); Blood Urea Nitrogen 19 mg/dL (9-20); Calcium 9.3 mg/dL (8.4-10.2); Carbon Dioxide 26 mmol/L (22-32); Chloride 104 mmol/L (98-107); Estimated Glomerular Filt Rate > 60 mL/min (>60); Globulin 3.5 g/dL (1.7-4.1); Glucose 133 mg/dL (80-110); HEMOLYSIS < 15 (0-50); Potassium 3.9 mmol/L (3.4-5.1); Sodium 139 mmol/L (137-145); Total Protein 7.7 g/dL (6.3-8.2)
[2021-11-01 13:14] LABS: Lipase 4680 U/L (23-300)
--- NOTE | 2021-11-01 13:21 | DI.MRI.S_ITS ---
PROCEDURE: MR ABDOMEN WO/W CON INDICATIONS: ? CBD stone vs tumor. elevated LFT/Bili/amylase TECHNIQUE: Coronal HASTE, axial 2D FLASH in- and [id number]; axial breath-hold T2 FSE. Dynamic axial VIBE during the administration of contrast; post-contrast coronal VIBE or 2D FLASH with fat saturation from the hepatic dome to the iliac crests. Optional diffusion weighted imaging and ADC may be performed. COMPARISON: None. FINDINGS: Image quality: Excellent. Lung bases: No basal pleural effusions. Heart size is normal. Solid organs: Liver is normal in size and enhancement. Gallbladder Tho surgically absent or contracted. Common bile duct is dilated at 1.3 cm. Several distal CBD stones measure up to is 7.5 mm. Mild intrahepatic biliary ductal dilatation noted as well. Pancreas is normal in morphology. Spleen is normal in size and enhancement. No adrenal nodules. Both kidneys demonstrate normal size and enhancement, without hydronephrosis. Multiple bilateral renal cysts measure up to 6.6 cm on the right Nodes and vessels: No retroperitoneal or mesenteric adenopathy by size criteria. Aorta and inferior vena cava are normal in size. Bowel and peritoneum: Unenhanced bowel loops are normal in caliber. No free fluid. Bones and soft tissues: No ventral hernias. Bone marrow is normal in overall signal. IMPRESSION: Choledocholithiasis and dilated CBD duct. CBD measures up to 1.3 cm, and several distal CBD stones measure up to 7.5 mm Stable bilateral renal cysts without hydronephrosis. o Approved by: Adrian Goldsmith M.D. on 11/01/2021 at 13:52
[2021-11-01] MEDS: ONDANSETRON 4 MG/2 ML INJ IV (13:35)
[2021-11-01 13:41] LABS: COVID19 -Nasal RAPID Negative (Negative)
[2021-11-01] MEDS: HYDROMORPHONE 0.5 MG INJ IV ×2 (14:46→15:11)
[2021-11-01] MEDS: cefTRIAXone 2,000 MG in SODIUM CHLORIDE 0.9% 100 ML 200 MG IV (14:46)
[2021-11-01] MEDS: SODIUM CHLORIDE 0.9% 1,000 ML 150 ML IV (14:46)
[2021-11-01 15:29] VITALS: BP 134/80; PULSE 66; O2SAT 97
[2021-11-01 15:30] VITALS: BP 140/78; PULSE 66; O2SAT 97
[2021-11-01] MEDS: HYDROMORPHONE 0.5 MG INJ 1 MG IV ×4 (15:31→17:16)
--- NOTE | 2021-11-01 15:31 | PC.NURSE ---
Pt MRI completed. Appears severely uncomfortable and doubled over in pain. being given 0.5mg IVP dilaudid without relief. MD made aware. PRN order for 1mg dilaudid Q15 in [address] and given once. Pt states pain has mildly improved. Pt nauseous without vomiting at this time. sitting on edge of bed attached to SPO2 and BP.
[2021-11-01 16:00] VITALS: BP 160/84; PULSE 63; O2SAT 97
[2021-11-01 16:30] VITALS: BP 170/83; PULSE 66; O2SAT 95
[2021-11-03 10:48] LABS: Bile Acids 256.4 umol/L (0.0-10.0)
== END 2021-11-01 17:10 | disposition short-term general hospital (02) ==
PROVIDERS: Emergency Provider Emergency Medicine; Family Provider Family Medicine; PCP Family Medicine
DX: K80.51 Calculus of bile duct without cholangitis or cholecystitis with obstruction (principal); K85.10 Biliary acute pancreatitis without necrosis or infection; R11.10 Vomiting, unspecified; L29.9 Pruritus, unspecified
CPT/HCPCS: 36415; 74183; 80053; 82150; 82239; 83690; 83735; 85025; 87635; 96365; 96375; 96376; 99284; C9803; A9579; J0696; J1170; J2405

== ENCOUNTER → 2021-11-11 11:09 | Outpatient (CLI) | payer MEDICARE, OTHER, SELFPAY ==
[2021-11-11 11:37] LABS: Hematocrit 42.5 % (41-53); Hemoglobin 14.9 g/dL (13.5-17.5); Mean Corpuscular Hemoglobin 30.1 PG (26-34); Mean Corpuscular Volume 86.1 fL (80-100); Red Blood Cell Count 4.94 X10^6/uL (4.5-5.9); Red Cell Distribution Width 15.1 % (11.6-14.8); White Blood Cell Count 7.7 X10^3/uL (4.5-11.0)
[2021-11-11 11:51] LABS: Alanine Aminotransferase 75 IU/L (<50); Albumin 3.9 g/dL (3.5-5.0); Albumin Globulin Ratio 1.4 (1.0-2.8); Alkaline Phosphatase 381 U/L (38-126); Aspartate Aminotransferase 57 IU/L (17-59); BUN Creatinine Ratio 17.3 (6-22); Bilirubin Total 1.2 mg/dL (0.2-1.3); Bilirubin Unconjugated 0.5 mg/dL (0.0-1.1); Blood Urea Nitrogen 17 mg/dL (9-20); C-Reactive Protein Quant < 0.5 mg/dL (<1.0); Carbon Dioxide 24 mmol/L (22-32); Chloride 105 mmol/L (98-107); Estimated Glomerular Filt Rate > 60 mL/min (>60); Globulin 2.8 g/dL (1.7-4.1); Glucose 108 mg/dL (80-110); HEMOLYSIS < 15 (0-50); Potassium 4.3 mmol/L (3.4-5.1); Sodium 135 mmol/L (137-145); Total Protein 6.7 g/dL (6.3-8.2)
[2021-11-11 11:59] LABS: Add Manual Diff / Slide Review YES
[2021-11-11 12:07] LABS: Neutrophils Absolute Manual 4466 /uL (3000-5900); RBC Morphology Normal Morphology; Total Cells Counted 100
[2021-11-11 12:11] LABS: Erythrocyte Sedimentation Rate 40 MM/HR (0-15)
== END ==
PROVIDERS: Family Provider Family Medicine; PCP Family Medicine; Referring Provider Family Medicine; Visit Provider Family Medicine
DX: R74.01 Elevation of levels of liver transaminase levels (principal); K80.51 Calculus of bile duct without cholangitis or cholecystitis with obstruction; K85.10 Biliary acute pancreatitis without necrosis or infection
CPT/HCPCS: 80048; 80076; 85007; 85025; 85651; 86140

== ENCOUNTER → 2021-11-21 09:49 | Outpatient (CLI) | payer MEDICARE, OTHER, SELFPAY ==
[2021-11-21 12:07] LABS: Alanine Aminotransferase 56 IU/L (<50); Albumin 3.7 g/dL (3.5-5.0); Albumin Globulin Ratio 1.5 (1.0-2.8); Alkaline Phosphatase 182 U/L (38-126); Aspartate Aminotransferase 58 IU/L (17-59); Bilirubin Total 0.8 mg/dL (0.2-1.3); Bilirubin Unconjugated 0.4 mg/dL (0.0-1.1); Globulin 2.4 g/dL (1.7-4.1); HEMOLYSIS < 15 (0-50); Total Protein 6.1 g/dL (6.3-8.2)
== END ==
PROVIDERS: Family Provider Family Medicine; PCP Family Medicine; Referring Provider Physician Assistant; Visit Provider Physician Assistant
DX: K80.51 Calculus of bile duct without cholangitis or cholecystitis with obstruction (principal); R74.8 Abnormal levels of other serum enzymes
CPT/HCPCS: 36415; 80076

== ENCOUNTER → 2021-12-22 09:00 | Outpatient (CLI) | payer MEDICARE, OTHER, SELFPAY ==
[2021-12-22 09:18] LABS: Add Manual Diff / Slide Review NO; Basophils Absolute Auto 0 /uL (0-100); Basophils Percent Auto 0.2 % (0-2); Eosinophils Absolute Auto 100 /uL (0-450); Eosinophils Percent Auto 1.1 % (2-4); Hematocrit 41.1 % (41-53); Hemoglobin 14.2 g/dL (13.5-17.5); Lymphocytes Absolute Auto 1300 /uL (1100-4500); Lymphocytes Percent Auto 25.6 % (25-40); Mean Corpuscular HGB Conc 34.6 % (30-36); Mean Corpuscular Volume 86.6 fL (80-100); Monocytes Absolute Auto 900 /uL (0-900); Monocytes Percent Auto 17.2 % (3-14); Neutrophils Absolute Auto 2900 /uL (1500-7000); Neutrophils Percent Auto 55.9 % (50-75); Platelet Count 103 X10^3/uL (150-400); Red Blood Cell Count 4.74 X10^6/uL (4.5-5.9); White Blood Cell Count 5.3 X10^3/uL (4.5-11.0)
[2021-12-22 09:31] LABS: Alanine Aminotransferase 33 IU/L (<50); Albumin 4.1 g/dL (3.5-5.0); Albumin Globulin Ratio 1.5 (1.0-2.8); Alkaline Phosphatase 76 U/L (38-126); Aspartate Aminotransferase 31 IU/L (17-59); BUN Creatinine Ratio 21.3 (6-22); Bilirubin Total 0.5 mg/dL (0.2-1.3); Blood Urea Nitrogen 20 mg/dL (9-20); Calcium 8.9 mg/dL (8.4-10.2); Carbon Dioxide 26 mmol/L (22-32); Chloride 107 mmol/L (98-107); Estimated Glomerular Filt Rate > 60 mL/min (>60); Globulin 2.8 g/dL (1.7-4.1); Glucose 102 mg/dL (80-110); HEMOLYSIS < 15 (0-50); Potassium 4.1 mmol/L (3.4-5.1); Sodium 139 mmol/L (137-145); Total Protein 6.9 g/dL (6.3-8.2)
[2021-12-22 10:38] LABS: Alanine Aminotransferase 32 IU/L (<50); Albumin Globulin Ratio 1.6 (1.0-2.8); Alkaline Phosphatase 80 U/L (38-126); Aspartate Aminotransferase 31 IU/L (17-59); Bilirubin Total 0.6 mg/dL (0.2-1.3); Bilirubin Unconjugated 0.4 mg/dL (0.0-1.1); Globulin 2.5 g/dL (1.7-4.1); HEMOLYSIS < 15 (0-50); Total Protein 6.5 g/dL (6.3-8.2)
== END ==
PROVIDERS: Internal Medicine Medical Oncology; Family Provider Family Medicine; PCP Family Medicine; Referring Provider Physician Assistant; Visit Provider Physician Assistant
DX: D69.6 Thrombocytopenia, unspecified (principal); I10 Essential (primary) hypertension; R74.8 Abnormal levels of other serum enzymes
CPT/HCPCS: 36415; 80053; 80076; 85025

== ENCOUNTER 2021-12-27 11:09 | Emergency (ER) | payer MEDICARE, OTHER, SELFPAY ==
[2021-12-27 11:21] VITALS: BP 202/99; PULSE 62; RESP 12; TEMP 36.6; O2SAT 99; BMI 25.8
--- NOTE | 2021-12-27 12:24 | DI.US.S_ITS ---
PROCEDURE: US PERIPH VENOUS LOW EXTREM LT INDICATIONS: PAIN, EDEMA TECHNIQUE: Real-time imaging, as well as color and pulse Doppler interrogation, were performed of the lower extremity deep veins from the inguinal ligament to the popliteal fossa. COMPARISON: None. FINDINGS: The common femoral, femoral and popliteal veins are normally compressible, and free of intraluminal thrombus. Color and pulse Doppler demonstrate normal phasic intraluminal flow. There is normal augmentation response to distal compression maneuver. Along the bhardwaj, there is a thrombosed superficial varicosity. IMPRESSION: There is a thrombosed superficial varicosity seen at the level of the bhardwaj. Negative for deep venous thrombosis. Dictated by: Cuate Whiting M.D. on 12/27/2021 at 15:20 Approved by: Cuate Whiting M.D. on 12/27/2021 at 15:21
[2021-12-27 14:11] LABS: Add Manual Diff / Slide Review NO; Basophils Absolute Auto 0 /uL (0-100); Basophils Percent Auto 0.3 % (0-2); Eosinophils Absolute Auto 100 /uL (0-450); Eosinophils Percent Auto 1.4 % (2-4); Hematocrit 40.2 % (41-53); Hemoglobin 14.1 g/dL (13.5-17.5); Lymphocytes Absolute Auto 1500 /uL (1100-4500); Lymphocytes Percent Auto 33.9 % (25-40); Mean Corpuscular HGB Conc 35.2 % (30-36); Mean Corpuscular Hemoglobin 30.2 PG (26-34); Mean Corpuscular Volume 85.9 fL (80-100); Monocytes Absolute Auto 700 /uL (0-900); Monocytes Percent Auto 16.3 % (3-14); Neutrophils Absolute Auto 2200 /uL (1500-7000); Neutrophils Percent Auto 48.1 % (50-75); Platelet Count 93 X10^3/uL (150-400); Red Blood Cell Count 4.68 X10^6/uL (4.5-5.9); Red Cell Distribution Width 13.6 % (11.6-14.8); White Blood Cell Count 4.5 X10^3/uL (4.5-11.0)
[2021-12-27 14:14] LABS: Prothrombin Time 10.9 SECONDS (10.1-12.7)
[2021-12-27 14:16] LABS: D Dimer 1454 ng/ml (<500)
[2021-12-27 14:17] LABS: PTT Partial Thromboplastin Tim 29 SECONDS (26-36)
[2021-12-27 14:19] LABS: Alanine Aminotransferase 28 IU/L (<50); Albumin 4.2 g/dL (3.5-5.0); Albumin Globulin Ratio 1.5 (1.0-2.8); Alkaline Phosphatase 84 U/L (38-126); Aspartate Aminotransferase 32 IU/L (17-59); BUN Creatinine Ratio 17.6 (6-22); Bilirubin Total 0.5 mg/dL (0.2-1.3); Blood Urea Nitrogen 16 mg/dL (9-20); Calcium 9.4 mg/dL (8.4-10.2); Carbon Dioxide 29 mmol/L (22-32); Chloride 103 mmol/L (98-107); Estimated Glomerular Filt Rate > 60 mL/min (>60); Globulin 2.8 g/dL (1.7-4.1); Glucose 88 mg/dL (80-110); HEMOLYSIS < 15 (0-50); Potassium 4.1 mmol/L (3.4-5.1); Sodium 139 mmol/L (137-145)
--- NOTE | 2021-12-27 15:06 | ED.LOWEXIN ---
HPI - Extremity Injury (Lower) <Stan Gaston PA-C - Last Filed: 12/27/21 16:43> General Chief Complaint: Extremity Injury, Lower Stated Complaint: Pain in left leg Time Seen by Provider: 12/27/21 12:08 Source: patient Mode of arrival: Ambulatory History of Present Illness HPI Narrative: Patient is a 76-year-old male who presents emergency room today with complaint of left-sided leg pain and swelling. Patient states he initially noticed a small red spot on the leg about 1 week ago. Patient states he awoke this morning the leg swollen and painful. Patient describes the pain as a teen and stinging pain that radiates down his left leg. Describes the pain as being worse with pressure slightly relieved by reducing pressure. Denies numbness or tingling in the lower extremity. Admits having an ERCP done on Tuesday of last week but denies any extended time without being ambulatory. Related Data Home Medications Medication Instructions Recorded Confirmed finasteride 5 mg tablet 5 mg PO QDAY ##0 04/09/16 11/18/21 cholecalciferol (vitamin D3) 50 50 mcg PO DAILY 06/04/20 11/18/21 mcg (2,000 unit) capsule multivitamin 1 tab PO DAILY 06/04/20 11/18/21 Lacto.acidophilus-Bif.animalis 1 cap PO DAILY 10/23/21 11/18/21 [Daily Probiotic] magnesium oxide 400 mg PO DAILY 10/23/21 11/18/21 nirmatrelvir 300 mg (150 mg x See Rx Instructions PO .COMPLEX 11/18/21 11/18/21 2)-ritonavir 100 mg tablet (EUA) (Paxlovid 300 mg () Allergies Allergy/AdvReac Type Severity Reaction Status Date / Time lobster AdvReac Mild Vomiting Uncoded 11/01/21 12:16 Review of Systems <Stan Gaston PA-C - Last Filed: 12/27/21 16:43> Review of Systems Narrative: REVIEW OF SYSTEMS:. General: No weight change, generally healthy, no change in strength or exercise tolerance. No fever/chill. No fatigue. Head: No headaches, no vertigo, no injury. Eyes: Normal vision, no diplopia, no tearing, no scotomata, no pain. Ears: No change in hearing, no tinnitus, no bleeding, no vertigo. Nose: No epistaxis, no coryza, no obstruction, no discharge. Mouth: No dental difficulties, no gingival bleeding, no use of dentures. Neck: No stiffness, no pain, no tenderness, no noted masses. Chest: No dyspnea, no wheezing, no hemoptysis, no cough. Heart: No chest pains, no palpitations, no syncope, no orthopnea. Abdomen: No change in appetite, no dysphagia, no abdominal pains, no bowel habit changes, no emesis, no melena. Musculoskeletal: Left lower extremity pain and swelling Neurologic: No weakness, no tremor, no seizures, no changes in mentation, no ataxia. Psychiatric: No depressive symptoms, no changes in sleep habits, no changes in thought content.. Patient History <Stan Gaston PA-C - Last Filed: 12/27/21 16:43> Medical History Atrial fibrillation Benign prostatic hyperplasia (01/17/15) Chills Cough Eczematous dermatitis Enlarged prostate Fever Gallbladder disease History of UTI Hypertension (01/17/15) Hypothyroidism (01/17/15) Hypothyroidism Shortness of breath Transaminitis Urinary retention Surgical History H/O cardiac radiofrequency ablation (~08/2017) H/O knee surgery (~1959) History of tonsillectomy (~1954) Family History Brother Age: 78 Heart disease Hypertension High cholesterol Stroke Father Heart disease High cholesterol Grandfather Stroke Grandmother Dementia Mother Heart disease Hypertension High cholesterol Grandmother TB (tuberculosis) Alcoholic Sister Age: 76 Hypertension Sister Age: 63 Hypertension Social History marital status: household members: spouse Smoking Status: Never smoker alcohol intake: never substance use type: does not use Smoking Status: Never smoker alcohol intake frequency: holidays/special occasions only Substance Use Type: does not use Exam <Stan Gaston PA-C - Last Filed: 12/27/21 16:43> Narrative Exam Narrative: Physical Exam: General: Normal appearance, well developed, well nourished, alert, and awake. Not in acute distress. ? Head: Normocephalic, no lesions. ?? Eyes: PERRLA, EOM's full, conjunctivae clear. ? Ears: EAC's clear, TM's normal. ?? Throat: Clear, no exudates, no lesions. ?? Neck: Supple, no masses, no thyromegaly, no bruits. ?? Chest: Lungs clear, no rales, no rhonchi, no wheezes. ?? Heart: RR, no murmurs, no rubs, no gallops. ?? Neuro: Physiological, no localizing findings, CN2-12 intact. ?? Extremities: And has a small circular macular erythematous area to the left medial leg about 4.5 in inferior to the left mid knee cap. The area is about 2.5 cm in circular diameter. The left leg is mildly warmer than the right leg with capillary refill. Diameter of the left and right calf so the same. Bilateral extremities have good posterior tibial pulse and intact sensation to touch. Left leg has mild increased swelling in comparison to the right leg at the area proximal to the left medial knee area extent in here about 2 in. The swelling has not pitted Edema. ? PSYCHIATRIC: The mood is good, no blunted affect. Speech is clear. Thought process is linear, thought content is appropriate. The voice is without significant inflection.. Initial Vital Signs Initial Vital Signs: Vital Signs Temperature 97.8 F 12/27/21 11:21 Pulse Rate 62 12/27/21 11:21 Respiratory Rate 12 12/27/21 11:21 Blood Pressure 202/99 H 12/27/21 11:21 Pulse Oximetry 99 12/27/21 11:21 Oxygen Delivery Method 12/27/21 11:21 <Astrid Portillo DO - Last Filed: 12/28/21 08:11> Initial Vital Signs Initial Vital Signs: Vital Signs Temperature 97.8 F 12/27/21 11:21 Pulse Rate 62 12/27/21 11:21 Respiratory Rate 12 12/27/21 11:21 Blood Pressure 202/99 H 12/27/21 11:21 Pulse Oximetry 99 12/27/21 11:21 Oxygen Delivery Method 12/27/21 11:21 Course <Stan Gaston PA-C - Last Filed: 12/27/21 16:43> Orders Ordered: ED Orders 12/27/21 12:24 US periph venous low extrem lt Stat 12/27/21 13:40 CBC Auto Diff [Complete Blood Count AUTO DIFF] Stat CMP [Comprehensive Metabolic Panel] Urgent D Dimer Stat PT [Prothrombin Time INR] Stat PTT [Partial Thromboplastin Time] Stat Vital Signs Vital signs: Vital Signs - 8 hr 12/27/21 11:21 12/27/21 16:14 Temperature 97.8 F Pulse Rate 62 65 Respiratory Rate 12 16 Blood Pressure 202/99 H 171/97 H Pulse Oximetry 99 98 Oxygen Delivery Method Room Air Room Air <Astrid Portillo DO - Last Filed: 12/28/21 08:11> Orders Ordered: ED Orders 12/27/21 12:24 perip venous low extrem lt Stat 12/27/21 13:40 CBC Auto Diff [Complete Blood Count AUTO DIFF] Stat CMP [Comprehensive Metabolic Panel] Urgent D Dimer Stat PT [Prothrombin Time INR] Stat PTT [Partial Thromboplastin Time] Stat Vital Signs Vital signs: Vital Signs - 8 hr 12/27/21 11:21 12/27/21 16:14 Temperature 97.8 F Pulse Rate 62 65 Respiratory Rate 12 16 Blood Pressure 202/99 H 171/97 H Pulse Oximetry 99 98 Oxygen Delivery Method Room Air Room Air MDM - Extremity Injury (Lower) <Stan Gaston PA-C - Last Filed: 12/27/21 16:43> Lab Data Result diagrams: 12/27/21 13:40 12/27/21 13:40 Labs: Lab Results 12/27/21 12/27/21 12/27/21 Range/Units 13:40 13:40 13:40 WBC 4.5 (4.5-11.0) X10^3/uL RBC 4.68 (4.5-5.9) X10^6/uL Hgb 14.1 (13.5-17.5) g/dL Hct 40.2 L (41-53) % MCV 85.9 (80-100) fL MCH 30.2 (26-34) PG MCHC 35.2 (30-36) % RDW 13.6 (11.6-14.8) % Plt Count 93 L (150-400) X10^3/uL Neut % (Auto) 48.1 L (50-75) % Lymph % (Auto) 33.9 (25-40) % [place] % (Auto) 16.3 H (3-14) % Eos % (Auto) 1.4 L (2-4) % Baso % (Auto) 0.3 (0-2) % Neut # (Auto) 2200 (5031-4221) /uL Lymph # (Auto) 1500 (1362-6482) /uL [place] # (Auto) 700 (0-900) /uL Eos # (Auto) 100 (0-450) /uL Baso # (Auto) 0 (0-100) /uL PT 10.9 (10.1-12.7) SECONDS INR 1.0 (0.9-1.3) APTT 29 (26-36) SECONDS D-Dimer 1454 H (<500) ng/ml Sodium 139 (137-145) mmol/L Potassium 4.1 (3.4-5.1) mmol/L Chloride 103 (98-107) mmol/L Carbon Dioxide 29 (22-32) mmol/L BUN 16 (9-20) mg/dL Creatinine 0.91 (0.66-1.25) mg/dL Estimated GFR > 60 (>60) mL/min BUN/Creatinine Ratio 17.6 (6-22) Glucose 88 (80-110) mg/dL Calcium 9.4 (8.4-10.2) mg/dL Total Bilirubin 0.5 (0.2-1.3) mg/dL AST 32 (17-59) IU/L ALT 28 (<50) IU/L Alkaline Phosphatase 84 (38-126) U/L Total Protein 7.0 (6.3-8.2) g/dL Albumin 4.2 (3.5-5.0) g/dL Globulin 2.8 (1.7-4.1) g/dL Albumin/Globulin Ratio 1.5 (1.0-2.8) MDM Narrative Medical decision making narrative: Patient is a 76-year-old male who presents to the emergency room today with complaint left-sided leg pain and swelling. Pain and swelling started this morning. Patient has no history of DVT and no significant Wells score at this time. Cbc CMP D-dimer and ultrasound order. D-dimer was elevated to 1454. Ultrasound result is negative for DVT but possitive for superficial vein thrombosis. Plan to discharge and advised with symptomatic care measures to include extremity elevation, warm or cool compresses, compression stockings, and Ibuprofen for pain management. <Astrid Lindsey, DO - Last Filed: 12/28/21 08:11> Lab Data Labs: Lab Results 12/27/21 12/27/21 12/27/21 Range/Units 13:40 13:40 13:40 WBC 4.5 (4.5-11.0) X10^3/uL RBC 4.68 (4.5-5.9) X10^6/uL Hgb 14.1 (13.5-17.5) g/dL Hct 40.2 L (41-53) % MCV 85.9 (80-100) fL MCH 30.2 (26-34) PG MCHC 35.2 (30-36) % RDW 13.6 (11.6-14.8) % Plt Count 93 L (150-400) X10^3/uL Neut % (Auto) 48.1 L (50-75) % Lymph % (Auto) 33.9 (25-40) % [place] % (Auto) 16.3 H (3-14) % Eos % (Auto) 1.4 L (2-4) % Baso % (Auto) 0.3 (0-2) % Neut # (Auto) 2200 (3904-0510) /uL Lymph # (Auto) 1500 (1789-5654) /uL [place] # (Auto) 700 (0-900) /uL Eos # (Auto) 100 (0-450) /uL Baso # (Auto) 0 (0-100) /uL PT 10.9 (10.1-12.7) SECONDS INR 1.0 (0.9-1.3) APTT 29 (26-36) SECONDS D-Dimer 1454 H (<500) ng/ml Sodium 139 (137-145) mmol/L Potassium 4.1 (3.4-5.1) mmol/L Chloride 103 (98-107) mmol/L Carbon Dioxide 29 (22-32) mmol/L BUN 16 (9-20) mg/dL Creatinine 0.91 (0.66-1.25) mg/dL Estimated GFR > 60 (>60) mL/min BUN/Creatinine Ratio 17.6 (6-22) Glucose 88 (80-110) mg/dL Calcium 9.4 (8.4-10.2) mg/dL Total Bilirubin 0.5 (0.2-1.3) mg/dL AST 32 (17-59) IU/L ALT 28 (<50) IU/L Alkaline Phosphatase 84 (38-126) U/L Total Protein 7.0 (6.3-8.2) g/dL Albumin 4.2 (3.5-5.0) g/dL Globulin 2.8 (1.7-4.1) g/dL Albumin/Globulin Ratio 1.5 (1.0-2.8) Discharge Plan Departure Patient Disposition: Home Clinical Impression: Acute superficial venous thrombosis of left lower extremity Instructions: Superficial Thrombophlebitis Activity Restrictions/Additional Instructions: *You have been diagnosed with [superficial phlebitis of your left lower extremity. ] Plan to discharge and advise you to perform symptomatic care measures to include extremity elevation, warm or cool compresses, compression stockings, and OTC Ibuprofen for pain management. *What to do: *Please continue to take your regular medications as directed. [ ] New medication prescriptions sent to your pharmacy: [ ] [ ] New medication written as a paper prescription [x ] No new medications given *Please follow up with your primary care provider in 2-3 days, call for an appointment. Let them know you were seen in the Emergency Department and that we ask that you be seen in follow up. We will electronically transmit a record of today's note if your PCP is in our system *If you do not have a primary care provider please contact the [facility] Resource line at [phone]. They will ask some questions about your medical history and help get you set up with a doctor in the community. *Return to Emergency Department if you should have any new, worsening or concerning symptoms, such as [fever greater than 101 F, shaking chills, worsening pain, persistent vomiting or other bothersome symptoms] Prescriptions: No Action Paxlovid (EUA) 150 mg x 2- 100 mg tablet See Rx Instructions PO .COMPLEX Rx Instructions: take TWO 150 mg tablets of nirmatrelvir with ONE 100 mg tablet of ritonavir twice daily for 5 days PO finasteride 5 MG tablet 5 mg PO QDAY Qty: 0 magnesium oxide 400 mg magnesium tablet 400 mg PO DAILY Lacto.acidophilus-Bif.animalis [Daily Probiotic] 1 cap PO DAILY cholecalciferol (vitamin D3) 50 mcg (2,000 unit) capsule 50 mcg PO DAILY multivitamin Tablet 1 tab PO DAILY Referrals: Emile Valdes MD [Primary Care Provider] - Visit Report Forms: Patient Portal/API <Astrid Portillo DO - Last Filed: 12/28/21 08:11> Cosign ED Attending Cosignature Attestation: I was immediately available in the department for consultation. Documentation has been reviewed. I agree with assessment and plan.
[2021-12-27 16:14] VITALS: BP 171/97; PULSE 65; RESP 16; O2SAT 98
== END 2021-12-27 16:41 | disposition home or self-care (01) ==
PROVIDERS: Emergency Provider Physician Assistant; Family Provider Family Medicine; PCP Family Medicine
DX: I82.812 Embolism and thrombosis of superficial veins of left lower extremity (principal)
CPT/HCPCS: 36415; 80053; 85025; 85379; 85610; 85730; 93971; 99281; 99284

== ENCOUNTER → 2022-03-15 15:13 | Outpatient (CLI) | payer MEDICARE, OTHER, SELFPAY ==
[2022-03-15 18:15] LABS: Prostate Specific Antigen 4.06 ng/mL (0.10-4.00)
== END ==
PROVIDERS: Family Provider Family Medicine; PCP Family Medicine; Referring Provider Urology; Visit Provider Urology
DX: R97.20 Elevated prostate specific antigen [PSA] (principal)
CPT/HCPCS: 36415; 84153

== ENCOUNTER 2023-02-07 | Emergency (ER) | payer MEDICARE, OTHER, SELFPAY ==
[2023-02-07] VITALS (18 sets, daily range): BP systolic 119–173; BP diastolic 66–90; PULSE 62–77; RESP 14–18; TEMP 35.9; O2SAT 94–100; BMI 29.0
--- NOTE | 2023-02-07 00:10 | DI.CT.S_ITS ---
PROCEDURE: CT STROKE INDICATIONS: Sudden onset vertigo, no prior history; n/v x 1 hour. TECHNIQUE: Noncontrast 4.5 mm thick angled axial sections acquired from the foramen magnum to the vertex, with coronal reformats. For radiation dose reduction, the following was used: automated exposure control, adjustment of mA and/or kV according to patient size. COMPARISON: [facility], CT, CT ANGIO HEAD AND NECK, 02/07/2023, 0:18. FINDINGS: Image quality: Excellent. CSF spaces: Basal cisterns are patent. No extra-axial fluid collections. Ventricles are normal in size and shape. Brain: No intracranial hemorrhage, mass, or mass effect. [place]-white matter interface appears preserved. Skull and face: Calvarium and visualized facial bones appear intact, without suspicious lesions. Sinuses: Visualized sinuses and mastoids are clear. IMPRESSION: 1. No acute intracranial abnormality. Specifically, no hemorrhage or other imaging contraindications to tPA. Findings discussed with Dr. Guerra on 02/07/2023 at 12:55 a.m.. This study fulfills neurological imaging criteria for inclusion or exclusion of acute stroke therapies based on available published neurological guidelines. Dictated by: Dez Waters M.D. on 02/07/2023 at 0:54 Approved by: Dez Waters M.D. on 02/07/2023 at 0:58
--- NOTE | 2023-02-07 00:12 | DI.CT.S_ITS ---
PROCEDURE: CT ANGIO HEAD AND NECK INDICATIONS: Sudden onset vertigo, no prior history; n/v x 1 hour. TECHNIQUE: After the administration of intravenous contrast, 1 mm thick sections acquired from the aortic arch through the [place]. 3-dimensional jmhgqoc-jbhmehpow-eehmztupgk (MIP) and/or volume rendering reformats were acquired of the central intracranial vasculature and neck separately. For radiation dose reduction, the following was used: automated exposure control, adjustment of mA and/or kV according to patient size. COMPARISON: None. FINDINGS: Image quality: There is motion artifact limiting evaluation. BRAIN: CSF spaces: Basal cisterns are patent. No extra-axial fluid collections. Ventricles are normal in size and shape. Brain: No intracranial hematoma collections, mass, or mass effect. [place]-white matter interface appears preserved. Skull and face: Calvarium and facial bones appear intact, without suspicious lesions. Orbits appear normal. Sinuses: Sinuses and mastoids are clear. HEAD CT ANGIOGRAPHY: Anterior circulation: Intracranial internal carotid arteries are normal in size and appear patent bilaterally. There is mild atherosclerotic calcification along the cavernous segments of the internal carotid arteries. The paired anterior cerebral arteries appear patent bilaterally. The anterior communicating artery also appears patent. The middle cerebral arteries appear patent bilaterally. No high-grade stenosis, occlusion, or filling defects. No cerebral aneurysms identified. Posterior circulation: The basilar artery and posterior cerebral arteries appear patent. There is persistent circulation on the right, with the right posterior cerebral artery supplied by a posterior communicating artery. No high-grade stenosis, occlusion, or filling defects. No cerebral aneurysms identified. NECK CT ANGIOGRAPHY: Carotid system: The great vessels demonstrate a conventional anatomy as they arise from the aortic arch. The origins of the common carotid arteries appear patent. The common carotid arteries demonstrate normal caliber and courses. The bifurcation regions are both widely patent. The internal carotid arteries demonstrate normal calibers and courses. Posterior circulation: There is a left dominant vertebrobasilar system with a diminutive left vertebral artery. The distal left vertebral artery is markedly attenuated in caliber and enhancement. The findings may reflect a developmental variant versus a severe stenosis in the distal left vertebral artery. The right vertebral artery is widely patent throughout its course. Basilar artery also appears patent. Soft tissues: Visualized lungs demonstrate multiple thin wall cysts within the lungs bilaterally. The thyroid demonstrates heterogeneous enhancement bilaterally. Bones: No suspicious bony lesions. Visualized cervical spine demonstrates straightening of the cervical lordosis. There is multilevel degenerative disc disease and facet joint arthropathy. IMPRESSION: 1. No high-grade stenosis or occlusion of the central intracranial arteries. 2. Right dominant vertebrobasilar system with a diminutive left vertebral artery. Markedly attenuated distal segment of the left vertebral artery may represent a developmental variant or severe segmental stenosis. 3. Elsewhere, no high-grade stenosis or occlusion of the head and neck arteries. Findings discussed with Dr. Guerra on 02/07/2023 at 12:55 a.m.. Any quantitative measurements of stenosis were performed using NASCET criteria. Dictated by: Dez Waters M.D. on 02/07/2023 at 0:59 Approved by: Dez Waters M.D. on 02/07/2023 at 1:05
--- NOTE | 2023-02-07 00:14 | ED_ITS ---
HPI - Neuro Symptoms/Deficit <Idalia Guerra, DO - Last Filed: 02/08/23 04:47> General Chief Complaint: Nausea/Vomiting/Diarrhea Stated Complaint: n/v for 1 hour Time Seen by Provider: 02/07/23 00:01 Source: patient, EMS, RN notes reviewed and old records reviewed Mode of arrival: EMS Limitations: no limitations History of Present Illness HPI Narrative: This is a 77-year-old male with history of hypertension, enlarged prostate with bladder dysfunction and Antunez catheter, atrial fibrillation post ablation and history of thrombocytopenia who presents with complaint of sudden onset of [place] vomiting and dizziness. Patient states he was at home he was seated when all of the sudden any time he starts moving his head he states the world does not feel like a spinning but it makes him very nauseated. Patient states he got very sweaty. He denies any headache, denies any vision changes. He states looking around with his eyes or moving his head makes it much worse. He denies any difficulty with speech. No chest pain or shortness of breath. He is had nausea and vomiting. He states he had loose stools yesterday but none this evening. He denies abdominal back or flank pain. Denies any new urinary changes he has a chronic indwelling Antunez catheter. Has not had any new pain, sediment or color changes. States no black or bloody stools. He states his emesis was the lasagna he ate earlier. Patient denies any numbness, tingling or weakness of his extremities. He states he is not had similar symptoms in the past. He states his only medications are currently, medication for hypertension and finasteride. No anticoagulation. Patient has had a prior cardiac ablation and cholecystectomy. Allergic to lobster, no other known allergies. He denies tobacco, alcohol, uses THC but no other recreational drugs. He notes that he would smoked marijuana earlier in the evening but not immediately prior to onset of symptoms. Related Data Home Medications Medication Instructions Recorded Confirmed finasteride 5 mg tablet 5 mg PO QDAY ##0 04/09/16 01/25/23 cholecalciferol (vitamin D3) 50 50 mcg PO DAILY 06/04/20 01/25/23 mcg (2,000 unit) capsule multivitamin 1 tab PO DAILY 06/04/20 01/25/23 Lacto.acidophilus-Bif.animalis 1 cap PO DAILY 10/23/21 01/25/23 [Daily Probiotic] magnesium oxide 400 mg PO DAILY 10/23/21 01/25/23 Previous Rx's Medication Instructions Recorded amlodipine 2.5 mg-benazepril 10 mg See Rx Instructions .Route 11/08/22 capsule .COMPLEX #90 caps meclizine 25 mg tablet 25 mg PO BID PRN dizziness #15 tabs 02/07/23 Allergies Allergy/AdvReac Type Severity Reaction Status Date / Time lobster AdvReac Mild Vomiting Uncoded 01/25/23 13:31 Review of Systems <Idalia Guerra DO - Last Filed: 02/08/23 04:47> Review of Systems ROS Unobtainable: All systems reviewed & are unremarkable except as noted in HPI and below Patient History <DO Jonnathan Antunez Last Filed: 02/08/23 04:47> Medical History Atrial fibrillation Benign prostatic hyperplasia (01/17/15) Chills Cough Eczematous dermatitis Enlarged prostate Fever Gallbladder disease History of UTI Hypertension (01/17/15) Hypothyroidism (01/17/15) Hypothyroidism Paroxysmal atrial fibrillation Shortness of breath Transaminitis Urinary retention Surgical History H/O cardiac radiofrequency ablation (~08/2017) H/O knee surgery (~1959) History of tonsillectomy (~1954) Family History Brother Age: 80 Heart disease Hypertension High cholesterol Stroke Father Heart disease High cholesterol Grandfather Stroke Grandmother Dementia Mother Heart disease Hypertension High cholesterol Grandmother TB (tuberculosis) Alcoholic Sister Age: 78 Hypertension Sister Age: 65 Hypertension Social History marital status: household members: spouse Smoking Status: Never smoker alcohol intake: never substance use type: does not use Smoking Status: Never smoker alcohol intake frequency: holidays/special occasions only Substance Use Type: does not use Exam <DO Jonnathan Antunez Last Filed: 02/08/23 04:47> Narrative Exam Narrative: GEN: well nourished, well appearing male, alert and oriented x 3, patient appears to be in mild distress. Patient is diaphoretic. HEENT: Atraumatic, pupils are equal round reactive to light, extraocular movements are intact, nystagmus appreciated, nares are clear, TMs are clear with no fluid, there is no conjunctival pallor. Throat is clear without any exudates, erythema, tonsillar enlargement or uvular deviation, no facial droop. HEART: Regular rate and rhythm without murmur, clicks, rubs. Pulses are equal in upper and lower extremities LUNGS:Lungs clear to auscultation, no wheezes, rales, crackles, chest moves symmetrically, no tachypnea or accessory muscle use ABD:bowel sounds normal, soft, non-tender, no guarding, rebound, rigidity, no masses noted, no hepatosplenomegaly :No CVA tenderness MSCL: Non-tender, no muscle atrophy, muscles strength 5/5 upper and lower extremities, full range of motion. NEURO:CN 2-12 intact, sensation normal, finger nose finger test normal, heel bhardwaj test normal, no dysarthria or aphasia. SKIN: No rash, erythema or other skin changes noted Initial Vital Signs Initial Vital Signs: Vital Signs Pulse Rate 69 02/07/23 00:03 Blood Pressure 161/85 H 02/07/23 00:03 Pulse Oximetry 100 02/07/23 00:03 <Jn Polk, DO - Last Filed: 02/07/23 08:19> Initial Vital Signs Initial Vital Signs: Vital Signs Pulse Rate 69 02/07/23 00:03 Blood Pressure 161/85 H 02/07/23 00:03 Pulse Oximetry 100 02/07/23 00:03 Scores <Idalia Guerra, DO - Last Filed: 02/08/23 04:47> NIH Stroke Scale Level of Conciousness: Alert, keenly responsive Ask month/age: Answers both questions correctly. Open/close eyes, close hand: Performs both tasks correctly Best gaze horizontal: Normal Visual richter: No visual loss Facial palsy: Normal symetrical movement Left arm drift: No drift for full 10 sec Right arm drift: No drift for full 10 sec Left leg drift: No drift for full 5 sec Right leg drift: No drift for full 5 sec Limb ataxia: Absent Sensory on face/arms/legs: Normal, no sensory loss Best language: No aphasia, normal Dysarthria: Normal Extinction or inattention: No abnormality Total NIH Stroke scale score: 0 <Jn Polk DO - Last Filed: 02/07/23 08:19> NIH Stroke Scale Total NIH Stroke scale score: 0 Course <Idalia Guerra DO - Last Filed: 02/08/23 04:47> Orders Ordered: Discontinued Medications Sodium Chloride (Normal Saline 0.9%) 1,000 mls @ 1,000 mls/hr IV BOLUS ONE Stop: 02/07/23 01:08 Last Infusion: 02/07/23 01:20 Dose: 0 mls/hr Documented By: Admin: 02/07/23 00:20 Dose: 1,000 mls/hr Documented By: CLAIRE Meclizine HCl (Meclizine Hcl 12.5 Mg Tablet) 50 mg PO NOW ONE Stop: 02/07/23 00:10 Last Admin: 02/07/23 00:20 Dose: 50 mg Documented By: CLAIRE Ondansetron HCl (Ondansetron 4 Mg/2 Ml Inj) 4 mg IV NOW ONE Stop: 02/07/23 00:10 Last Admin: 02/07/23 00:20 Dose: 4 mg Documented By: CLAIRE Vital Signs Vital signs: Vital Signs - 8 hr 02/07/23 00:38 02/07/23 00:40 02/07/23 00:40 Pulse Rate 72 69 Respiratory Rate 14 Blood Pressure 173/90 H Pulse Oximetry 98 100 02/07/23 01:00 02/07/23 01:00 02/07/23 01:30 Pulse Rate 67 Respiratory Rate 14 Blood Pressure 152/83 H 142/80 H Pulse Oximetry 95 02/07/23 01:30 Pulse Rate 68 Respiratory Rate 16 Blood Pressure Pulse Oximetry 96 <Jn Polk DO - Last Filed: 02/07/23 08:19> Orders Ordered: Discontinued Medications Sodium Chloride (Normal Saline 0.9%) 1,000 mls @ 1,000 mls/hr IV BOLUS ONE Stop: 02/07/23 01:08 Last Infusion: 02/07/23 01:20 Dose: 0 mls/hr Documented By: Admin: 02/07/23 00:20 Dose: 1,000 mls/hr Documented By: CLAIRE Meclizine HCl (Meclizine Hcl 12.5 Mg Tablet) 50 mg PO NOW ONE Stop: 02/07/23 00:10 Last Admin: 02/07/23 00:20 Dose: 50 mg Documented By: GC Ondansetron HCl (Ondansetron 4 Mg/2 Ml Inj) 4 mg IV NOW ONE Stop: 02/07/23 00:10 Last Admin: 02/07/23 00:20 Dose: 4 mg Documented By: GC Vital Signs Vital signs: Vital Signs - 8 hr 02/07/23 00:38 02/07/23 00:40 02/07/23 00:40 Pulse Rate 72 69 Respiratory Rate 14 Blood Pressure 173/90 H Pulse Oximetry 98 100 02/07/23 01:00 02/07/23 01:00 02/07/23 01:30 Pulse Rate 67 Respiratory Rate 14 Blood Pressure 152/83 H 142/80 H Pulse Oximetry 95 02/07/23 01:30 Pulse Rate 68 Respiratory Rate 16 Blood Pressure Pulse Oximetry 96 MDM - Neuro Symptoms/Deficit <Idalia Guerra, - Last Filed: 02/08/23 04:47> Lab Data 02/07/23 00:00 02/07/23 00:00 Labs: Lab Results 02/07/23 02/07/23 02/07/23 Range/Units 00:00 00:00 00:00 WBC 7.2 (4.5-11.0) X10^3/uL RBC 4.95 (4.5-5.9) X10^6/uL Hgb 14.1 (13.5-17.5) g/dL Hct 42.1 (41-53) % MCV 85.1 (80-100) fL MCH 28.5 (26-34) PG MCHC 33.5 (30-36) % RDW 14.4 (11.6-14.8) % Plt Count 96 L (150-400) X10^3/uL Neut % (Auto) 50.3 (50-75) % Lymph % (Auto) 33.8 (25-40) % [place] % (Auto) 14.3 H (3-14) % Eos % (Auto) 1.3 L (2-4) % Baso % (Auto) 0.3 (0-2) % Neut # (Auto) 3600 (2671-9165) /uL Lymph # (Auto) 2400 (6210-6568) /uL [place] # (Auto) 1000 H (0-900) /uL Eos # (Auto) 100 (0-450) /uL Baso # (Auto) 0 (0-100) /uL PT 10.3 (10.1-12.7) SECONDS INR 0.9 (0.9-1.3) APTT 25 L (26-36) SECONDS Sodium 138 (137-145) mmol/L Potassium 3.6 (3.4-5.1) mmol/L Chloride 106 (98-107) mmol/L Carbon Dioxide 22 (22-32) mmol/L BUN 28 H (9-20) mg/dL Creatinine 1.18 (0.66-1.25) mg/dL Estimated GFR > 60 (>60) mL/min BUN/Creatinine Ratio 23.7 H (6-22) Glucose 143 H (80-110) mg/dL Calcium 9.9 (8.4-10.2) mg/dL Total Bilirubin 0.3 (0.2-1.3) mg/dL AST 37 (17-59) IU/L ALT 28 (<50) IU/L Alkaline Phosphatase 57 (38-126) U/L Total Creatine Kinase 111 (55-170) U/L Troponin I < 0.012 (0.01-0.034) ng/mL Total Protein 7.4 (6.3-8.2) g/dL Albumin 4.5 (3.5-5.0) g/dL Globulin 2.9 (1.7-4.1) g/dL Albumin/Globulin Ratio 1.6 (1.0-2.8) Lipase (23-300) U/L Urine RBC (0-5/HPF) Urine WBC (0-5/HPF) Ur Squamous Epith Cells (0-5/HPF) Urine Bacteria (None) Ur Culture Indicated? U Opiates 300ng/mL cut (Negative) Ur Oxycodone Screen (Negative) Urine Methadone Screen (Negative) Ur Barbiturates Screen (Negative) U Tricyclic Antidepress (Negative) Ur Phencyclidine Scrn (Negative) Ur Amphetamines Screen (Negative) U Methamphetamines Scrn (Negative) Ur MDMA Scrn (Ecstasy) (Negative) U Benzodiazepines Scrn (Negative) Urine Cocaine Screen (Negative) U Marijuana (THC) Screen (Negative) Ethyl Alcohol < 10 ( - 10) mg/dL SARS-CoV-2 (PCR) (Negative) 02/07/23 02/07/23 02/07/23 Range/Units 00:00 00:01 01:09 WBC (4.5-11.0) X10^3/uL RBC (4.5-5.9) X10^6/uL Hgb (13.5-17.5) g/dL Hct (41-53) % MCV (80-100) fL MCH (26-34) PG MCHC (30-36) % RDW (11.6-14.8) % Plt Count (150-400) X10^3/uL Neut % (Auto) (50-75) % Lymph % (Auto) (25-40) % [place] % (Auto) (3-14) % Eos % (Auto) (2-4) % Baso % (Auto) (0-2) % Neut # (Auto) (8757-6557) /uL Lymph # (Auto) (5068-7498) /uL [place] # (Auto) (0-900) /uL Eos # (Auto) (0-450) /uL Baso # (Auto) (0-100) /uL PT (10.1-12.7) SECONDS INR (0.9-1.3) APTT (26-36) SECONDS Sodium (137-145) mmol/L Potassium (3.4-5.1) mmol/L Chloride (98-107) mmol/L Carbon Dioxide (22-32) mmol/L BUN (9-20) mg/dL Creatinine (0.66-1.25) mg/dL Estimated GFR (>60) mL/min BUN/Creatinine Ratio (6-22) Glucose (80-110) mg/dL Calcium (8.4-10.2) mg/dL Total Bilirubin (0.2-1.3) mg/dL AST (17-59) IU/L ALT (<50) IU/L Alkaline Phosphatase (38-126) U/L Total Creatine Kinase (55-170) U/L Troponin I (0.01-0.034) ng/mL Total Protein (6.3-8.2) g/dL Albumin (3.5-5.0) g/dL Globulin (1.7-4.1) g/dL Albumin/Globulin Ratio (1.0-2.8) Lipase 133 (23-300) U/L Urine RBC (0-5/HPF) Urine WBC (0-5/HPF) Ur Squamous Epith Cells (0-5/HPF) Urine Bacteria (None) Ur Culture Indicated? U Opiates 300ng/mL cut Negative (Negative) Ur Oxycodone Screen Negative (Negative) Urine Methadone Screen Negative (Negative) Ur Barbiturates Screen Negative (Negative) U Tricyclic Antidepress Negative (Negative) Ur Phencyclidine Scrn Negative (Negative) Ur Amphetamines Screen Negative (Negative) U Methamphetamines Scrn Negative (Negative) Ur MDMA Scrn (Ecstasy) Negative (Negative) U Benzodiazepines Scrn Negative (Negative) Urine Cocaine Screen Negative (Negative) U Marijuana (THC) Screen Positive H (Negative) Ethyl Alcohol ( - 10) mg/dL SARS-CoV-2 (PCR) Negative (Negative) 02/07/23 Range/Units 01:09 WBC (4.5-11.0) X10^3/uL RBC (4.5-5.9) X10^6/uL Hgb (13.5-17.5) g/dL Hct (41-53) % MCV (80-100) fL MCH (26-34) PG MCHC (30-36) % RDW (11.6-14.8) % Plt Count (150-400) X10^3/uL Neut % (Auto) (50-75) % Lymph % (Auto) (25-40) % [place] % (Auto) (3-14) % Eos % (Auto) (2-4) % Baso % (Auto) (0-2) % Neut # (Auto) (8122-6250) /uL Lymph # (Auto) (3643-5106) /uL [place] # (Auto) (0-900) /uL Eos # (Auto) (0-450) /uL Baso # (Auto) (0-100) /uL PT (10.1-12.7) SECONDS INR (0.9-1.3) APTT (26-36) SECONDS Sodium (137-145) mmol/L Potassium (3.4-5.1) mmol/L Chloride (98-107) mmol/L Carbon Dioxide (22-32) mmol/L BUN (9-20) mg/dL Creatinine (0.66-1.25) mg/dL Estimated GFR (>60) mL/min BUN/Creatinine Ratio (6-22) Glucose (80-110) mg/dL Calcium (8.4-10.2) mg/dL Total Bilirubin (0.2-1.3) mg/dL AST (17-59) IU/L ALT (<50) IU/L Alkaline Phosphatase (38-126) U/L Total Creatine Kinase (55-170) U/L Troponin I (0.01-0.034) ng/mL Total Protein (6.3-8.2) g/dL Albumin (3.5-5.0) g/dL Globulin (1.7-4.1) g/dL Albumin/Globulin Ratio (1.0-2.8) Lipase (23-300) U/L Urine RBC 1-5/hpf (0-5/HPF) Urine WBC 5-10/hpf H (0-5/HPF) Ur Squamous Epith Cells None seen (0-5/HPF) Urine Bacteria Moderate (10-30) H (None) Ur Culture Indicated? Specimen cultured U Opiates 300ng/mL cut (Negative) Ur Oxycodone Screen (Negative) Urine Methadone Screen (Negative) Ur Barbiturates Screen (Negative) U Tricyclic Antidepress (Negative) Ur Phencyclidine Scrn (Negative) Ur Amphetamines Screen (Negative) U Methamphetamines Scrn (Negative) Ur MDMA Scrn (Ecstasy) (Negative) U Benzodiazepines Scrn (Negative) Urine Cocaine Screen (Negative) U Marijuana (THC) Screen (Negative) Ethyl Alcohol ( - 10) mg/dL SARS-CoV-2 (PCR) (Negative) Urine Dip Bedside Urine Glucose Negative Bedside Urine Bilirubin - Negative Bedside Urine Ketone +/- 5 Urine Specific [place] 1.025 Bedside Urine Occult Blood ++ Bedside Urine pH 5.5 Bedside Urine Protein +/- 15 Bedside Urine Urobilinogen - Negative Bedside Urine Nitrite + Positive Bedside Urine Leukocytes + [address] scan - head: Radiologist's Impression: negative for acute bleed or change, results called by Dr. Waters to myself. El Covarrubias??77??M??1945 ? Allergy/Adv: [lobster] Close Head/Neck CTA (Signed) Dez Waters - 02/07/[address] (Signed) Dez Waters - 02/07/23 Vascular Ultrasound (Signed) No Whitinge - 12/27/21 DI Result CC 11/18/21 Abdomen MRI (Signed) Adrian Goldsmith - 11/01/21 Abdomen Ultrasound (Signed) EmmanuelYaron - 05/30/20 Abdomen/Pelvis CT (Signed) Yaron Benitez - 05/27/20 DI Result CC 11/28/19 Launch?Image [address] [address] [address] Scan Report Signed Patient: El Covarrubias MR#: [id number] : 1945 Acct:[id number] Age/Sex: 77 / M Date of Service: 02/07/23 Loc: ED Accession Number: [id number] ?? Procedure: CT Stroke Ordering Provider: Idalia Guerra D.O. PROCEDURE:? CT STROKE ? INDICATIONS:? Sudden onset vertigo, no prior history; n/v x 1 hour. ? TECHNIQUE:? Noncontrast 4.5 mm thick angled axial sections acquired from the foramen magnum to the vertex, with coronal reformats.? For radiation dose reduction, the following was used:? automated exposure control, adjustment of mA and/or kV according to patient size.? ? COMPARISON:? [facility], CT, CT ANGIO HEAD AND NECK, 02/07/2023, 0:18. ? FINDINGS:? Image quality:? Excellent.? ? CSF spaces:? Basal cisterns are patent.? No extra-axial fluid collections.? Ventricles are normal in size and shape.? ? Brain:? No intracranial hemorrhage, mass, or mass effect.? Banegas-white matter interface appears preserved.? ? Skull and face:? Calvarium and visualized facial bones appear intact, without suspicious lesions.? ? Sinuses:? Visualized sinuses and mastoids are clear.? ? IMPRESSION:? ? 1. No acute intracranial abnormality.? Specifically, no hemorrhage or other imaging contraindications to tPA. ? Findings discussed with Dr. Guerra on 02/07/2023 at 12:55 a.m.. ? This study fulfills neurological imaging criteria for inclusion or exclusion of acute stroke therapies based on available published neurological guidelines.? ? ? Dictated by: Dez Waters M.D. on 02/07/2023 at 0:54 ? ? Approved by: Dez Waters M.D. on 02/07/2023 at 0:58?? CTA - brain/neck: Radiologist's Impression: [address] [address] [address] Scan Report Signed Patient: El Covarrubias MR#: [id number] : 1945 Acct:[id number] Age/Sex: 77 / M Date of Service: 02/07/23 Loc: ED Accession Number: [id number] ?? Procedure: CT angio head and neck Ordering Provider: Idalia Guerra D.O. PROCEDURE:? CT ANGIO HEAD AND NECK ? INDICATIONS:? Sudden onset vertigo, no prior history; n/v x 1 hour. ? TECHNIQUE:? After the administration of intravenous contrast, 1 mm thick sections acquired from the aortic arch through the [place] of [place].? 3-dimensional maximum-intensity- projection (MIP) and/or volume rendering reformats were acquired of the central intracranial vasculature and neck separately. For radiation dose reduction, the following was used:? automated exposure control, adjustment of mA and/or kV according to patient size.? ? COMPARISON:? None. ? FINDINGS:? Image quality:? There is motion artifact limiting evaluation.? ? BRAIN:? CSF spaces:? Basal cisterns are patent.? No extra-axial fluid collections.? Ventricles are normal in size and shape.? ? Brain:? No intracranial hematoma collections, mass, or mass effect.? Banegas-white matter interface appears preserved.? ? Skull and face:? Calvarium and facial bones appear intact, without suspicious lesions.? Orbits appear normal.? ? Sinuses:? Sinuses and mastoids are clear.? ? HEAD CT ANGIOGRAPHY:? Anterior circulation:? Intracranial internal carotid arteries are normal in size and appear patent bilaterally.? There is mild atherosclerotic calcification along the cavernous segments of the internal carotid arteries.? The paired anterior cerebral arteries appear patent bilaterally.? The anterior communicating artery also appears patent. The middle cerebral arteries appear patent bilaterally.? No high-grade stenosis, occlusion, or filling defects.? No cerebral aneurysms identified. ? Posterior circulation:? The basilar artery and posterior cerebral arteries appear patent. ?There is persistent circulation on the right, with the right posterior cerebral artery supplied by a posterior communicating artery.? No high-grade stenosis, occlusion, or filling defects.? No cerebral aneurysms identified. ? NECK CT ANGIOGRAPHY:? Carotid system:? The great vessels demonstrate a conventional anatomy as they arise from the aortic arch.? The origins of the common carotid arteries appear patent.? The common carotid arteries demonstrate normal caliber and courses.? The bifurcation regions are both widely patent.? The internal carotid arteries demonstrate normal calibers and courses.? ? Posterior circulation:? There is a left dominant vertebrobasilar system with a diminutive left vertebral artery.? The distal left vertebral artery is markedly attenuated in caliber and enhancement.? The findings may reflect a developmental variant versus a severe stenosis in the distal left vertebral artery.? The right vertebral artery is widely patent throughout its course.? Basilar artery also appears patent. ? Soft tissues:? Visualized lungs demonstrate multiple thin wall cysts within the lungs bilaterally.? The thyroid demonstrates heterogeneous enhancement bilaterally. ? Bones:? No suspicious bony lesions.? Visualized cervical spine demonstrates straightening of the cervical lordosis.? There is multilevel degenerative disc disease and facet joint arthropathy.? ? IMPRESSION:? ? 1.? No high-grade stenosis or occlusion of the central intracranial arteries. ? 2. Right dominant vertebrobasilar system with a diminutive left vertebral artery.? Markedly attenuated distal segment of the left vertebral artery may represent a developmental variant or severe segmental stenosis. ? 3. Elsewhere, no high-grade stenosis or occlusion of the head and neck arteries.? ? Findings discussed with Dr. Guerra on 02/07/2023 at 12:55 a.m.. ? Any quantitative measurements of stenosis were performed using NASCET criteria.? ? ? Dictated by: Dez Waters M.D. on 02/07/2023 at 0:59 ? ? Approved by: Dez Waters M.D. on 02/07/2023 at 1:05?? ECG Data Attestation: I personally reviewed and interpreted this ECG as follows: Prior ECG tracings: not available for review Interpretation: Sinus rhythm with first-degree AV block right bundle-branch, rate of 63, LA 220, QRS of 142 QTC 497. No priors for comparison. MDM Narrative Medical decision making narrative: This is a 77-year-old male who presents with nausea vomiting and worsened when he opens his eyes or moves his head he states does not feel like the room is spinning but any sort of movement makes it worse which seems very vertigo like. Fairly sudden onset little over 2 hours prior to arrival. No other acute neurologic changes appreciated on exam. Patient received some fluids, Zofran and meclizine orally here. Labs, EKG and imaging were obtained. Patient was within window for tPA but with NIH of 0 and not felt to be an appropriate candidate. Non-contrast Head CT is negative. CTA head and neck imaging shows right dominant vertebral basilar sys tem with diminutive left vertebral artery markedly attenuated distal segment left vertebral artery may represent developmental variant or severe segmental stenosis. Elsewhere no high-grade stenosis or occlusion of the head and neck arteries. Labs show platelets of 96 consistent with patient's prior history of thrombocytopenia, normal white count and hemoglobin, BUN 28, electrolytes are otherwise appropriate glucose 143, LFTs and troponin are negative. Urine is positive for nitrates, 5-10 wbc's and bacteria was sent for culture. After patient's and discussion with his indwelling: UDS is positive for marijuana consistent with patient history and covid is negative. Recheck of patient he is feeling improved. He states vertigo symptoms have not completely resolved but much better. After discussion with patient and family does have family history of neuro vessels for his mom who required a CABG not because of atherosclerotic but narrow vessels, and a brother who had congenital narrow intracranial vessels and had a stroke in his 20s but is currently in his 80s and doing well. Spoke with [facility]/ stroke neurology: Reviewed patient's findings, thrombocytopenia, from review chart he has not had bone marrow biopsy in his continuing be observed at this time. 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 They recommend MR brain without contrast if negative would recommend to be treated as peripheral vertigo with PT and Orin-Hallpike. If positive would ask for recontact as patient's thrombocytopenia would affect potential management, patient is not a candidate for intervention at this time such as tPA or thrombectomy with improving symptoms and moving outside the window of treatment. Discussed with patient and family they are reluctant to stay for observation secondary to financial concerns particularly if MRI is negative and would be dispositioned home. Patient signed out to Dr. Polk while awaiting MR brain without contrast. If MR is negative and patient is able to ambulate safely can DC home with follow up with ENT/PT for peripheral vertigo, if positive plan for re-consultation with neurology as recommended and admission for stroke. Stroke Core Measures Contraindications for TPA in CVA: Platelet Count<100,000 <Jn Polk, DO - Last Filed: 02/07/23 08:19> Lab Data Labs: Lab Results 02/07/23 02/07/23 02/07/23 Range/Units 00:00 00:00 00:00 WBC 7.2 (4.5-11.0) X10^3/uL RBC 4.95 (4.5-5.9) X10^6/uL Hgb 14.1 (13.5-17.5) g/dL Hct 42.1 (41-53) % MCV 85.1 (80-100) fL MCH 28.5 (26-34) PG MCHC 33.5 (30-36) % RDW 14.4 (11.6-14.8) % Plt Count 96 L (150-400) X10^3/uL Neut % (Auto) 50.3 (50-75) % Lymph % (Auto) 33.8 (25-40) % [place] % (Auto) 14.3 H (3-14) % Eos % (Auto) 1.3 L (2-4) % Baso % (Auto) 0.3 (0-2) % Neut # (Auto) 3600 (1133-5010) /uL Lymph # (Auto) 2400 (9297-9707) /uL [place] # (Auto) 1000 H (0-900) /uL Eos # (Auto) 100 (0-450) /uL Baso # (Auto) 0 (0-100) /uL PT 10.3 (10.1-12.7) SECONDS INR 0.9 (0.9-1.3) APTT 25 L (26-36) SECONDS Sodium 138 (137-145) mmol/L Potassium 3.6 (3.4-5.1) mmol/L Chloride 106 (98-107) mmol/L Carbon Dioxide 22 (22-32) mmol/L BUN 28 H (9-20) mg/dL Creatinine 1.18 (0.66-1.25) mg/dL Estimated GFR > 60 (>60) mL/min BUN/Creatinine Ratio 23.7 H (6-22) Glucose 143 H (80-110) mg/dL Calcium 9.9 (8.4-10.2) mg/dL Total Bilirubin 0.3 (0.2-1.3) mg/dL AST 37 (17-59) IU/L ALT 28 (<50) IU/L Alkaline Phosphatase 57 (38-126) U/L Total Creatine Kinase 111 (55-170) U/L Troponin I < 0.012 (0.01-0.034) ng/mL Total Protein 7.4 (6.3-8.2) g/dL Albumin 4.5 (3.5-5.0) g/dL Globulin 2.9 (1.7-4.1) g/dL Albumin/Globulin Ratio 1.6 (1.0-2.8) Lipase (23-300) U/L Urine RBC (0-5/HPF) Urine WBC (0-5/HPF) Ur Squamous Epith Cells (0-5/HPF) Urine Bacteria (None) Ur Culture Indicated? U Opiates 300ng/mL cut (Negative) Ur Oxycodone Screen (Negative) Urine Methadone Screen (Negative) Ur Barbiturates Screen (Negative) U Tricyclic Antidepress (Negative) Ur Phencyclidine Scrn (Negative) Ur Amphetamines Screen (Negative) U Methamphetamines Scrn (Negative) Ur MDMA Scrn (Ecstasy) (Negative) U Benzodiazepines Scrn (Negative) Urine Cocaine Screen (Negative) U Marijuana (THC) Screen (Negative) Ethyl Alcohol < 10 ( - 10) mg/dL SARS-CoV-2 (PCR) (Negative) 02/07/23 02/07/23 02/07/23 Range/Units 00:00 00:01 01:09 WBC (4.5-11.0) X10^3/uL RBC (4.5-5.9) X10^6/uL Hgb (13.5-17.5) g/dL Hct (41-53) % MCV (80-100) fL MCH (26-34) PG MCHC (30-36) % RDW (11.6-14.8) % Plt Count (150-400) X10^3/uL Neut % (Auto) (50-75) % Lymph % (Auto) (25-40) % [place] % (Auto) (3-14) % Eos % (Auto) (2-4) % Baso % (Auto) (0-2) % Neut # (Auto) (5500-1630) /uL Lymph # (Auto) (6160-1403) /uL [place] # (Auto) (0-900) /uL Eos # (Auto) (0-450) /uL Baso # (Auto) (0-100) /uL PT (10.1-12.7) SECONDS INR (0.9-1.3) APTT (26-36) SECONDS Sodium (137-145) mmol/L Potassium (3.4-5.1) mmol/L Chloride (98-107) mmol/L Carbon Dioxide (22-32) mmol/L BUN (9-20) mg/dL Creatinine (0.66-1.25) mg/dL Estimated GFR (>60) mL/min BUN/Creatinine Ratio (6-22) Glucose (80-110) mg/dL Calcium (8.4-10.2) mg/dL Total Bilirubin (0.2-1.3) mg/dL AST (17-59) IU/L ALT (<50) IU/L Alkaline Phosphatase (38-126) U/L Total Creatine Kinase (55-170) U/L Troponin I (0.01-0.034) ng/mL Total Protein (6.3-8.2) g/dL Albumin (3.5-5.0) g/dL Globulin (1.7-4.1) g/dL Albumin/Globulin Ratio (1.0-2.8) Lipase 133 (23-300) U/L Urine RBC (0-5/HPF) Urine WBC (0-5/HPF) Ur Squamous Epith Cells (0-5/HPF) Urine Bacteria (None) Ur Culture Indicated? U Opiates 300ng/mL cut Negative (Negative) Ur Oxycodone Screen Negative (Negative) Urine Methadone Screen Negative (Negative) Ur Barbiturates Screen Negative (Negative) U Tricyclic Antidepress Negative (Negative) Ur Phencyclidine Scrn Negative (Negative) Ur Amphetamines Screen Negative (Negative) U Methamphetamines Scrn Negative (Negative) Ur MDMA Scrn (Ecstasy) Negative (Negative) U Benzodiazepines Scrn Negative (Negative) Urine Cocaine Screen Negative (Negative) U Marijuana (THC) Screen Positive H (Negative) Ethyl Alcohol ( - 10) mg/dL SARS-CoV-2 (PCR) Negative (Negative) 02/07/23 Range/Units 01:09 WBC (4.5-11.0) X10^3/uL RBC (4.5-5.9) X10^6/uL Hgb (13.5-17.5) g/dL Hct (41-53) % MCV (80-100) fL MCH (26-34) PG MCHC (30-36) % RDW (11.6-14.8) % Plt Count (150-400) X10^3/uL Neut % (Auto) (50-75) % Lymph % (Auto) (25-40) % [place] % (Auto) (3-14) % Eos % (Auto) (2-4) % Baso % (Auto) (0-2) % Neut # (Auto) (2087-6680) /uL Lymph # (Auto) (6120-5826) /uL [place] # (Auto) (0-900) /uL Eos # (Auto) (0-450) /uL Baso # (Auto) (0-100) /uL PT (10.1-12.7) SECONDS INR (0.9-1.3) APTT (26-36) SECONDS Sodium (137-145) mmol/L Potassium (3.4-5.1) mmol/L Chloride (98-107) mmol/L Carbon Dioxide (22-32) mmol/L BUN (9-20) mg/dL Creatinine (0.66-1.25) mg/dL Estimated GFR (>60) mL/min BUN/Creatinine Ratio (6-22) Glucose (80-110) mg/dL Calcium (8.4-10.2) mg/dL Total Bilirubin (0.2-1.3) mg/dL AST (17-59) IU/L ALT (<50) IU/L Alkaline Phosphatase (38-126) U/L Total Creatine Kinase (55-170) U/L Troponin I (0.01-0.034) ng/mL Total Protein (6.3-8.2) g/dL Albumin (3.5-5.0) g/dL Globulin (1.7-4.1) g/dL Albumin/Globulin Ratio (1.0-2.8) Lipase (23-300) U/L Urine RBC 1-5/hpf (0-5/HPF) Urine WBC 5-10/hpf H (0-5/HPF) Ur Squamous Epith Cells None seen (0-5/HPF) Urine Bacteria Moderate (10-30) H (None) Ur Culture Indicated? Specimen cultured U Opiates 300ng/mL cut (Negative) Ur Oxycodone Screen (Negative) Urine Methadone Screen (Negative) Ur Barbiturates Screen (Negative) U Tricyclic Antidepress (Negative) Ur Phencyclidine Scrn (Negative) Ur Amphetamines Screen (Negative) U Methamphetamines Scrn (Negative) Ur MDMA Scrn (Ecstasy) (Negative) U Benzodiazepines Scrn (Negative) Urine Cocaine Screen (Negative) U Marijuana (THC) Screen (Negative) Ethyl Alcohol ( - 10) mg/dL SARS-CoV-2 (PCR) (Negative) Urine Dip Bedside Urine Glucose Negative Bedside Urine Bilirubin - Negative Bedside Urine Ketone +/- 5 Urine Specific [place] 1.025 Bedside Urine Occult Blood ++ Bedside Urine pH 5.5 Bedside Urine Protein +/- 15 Bedside Urine Urobilinogen - Negative Bedside Urine Nitrite + Positive Bedside Urine Leukocytes + 70 Esterase Imaging Data MR brain: Radiologist's Impression: PROCEDURE:? MR HEAD/BRAIN WO CON ? INDICATIONS:? vertigo new onset, Left vert artery jimbo narrow ? TECHNIQUE:? Noncontrast axial T1 spin echo, axial T2 fast spin echo, sagittal and axial FLAIR, coronal T2 fast spin echo, axial gradient echo, axial diffusion and ADC through the brain.? ? COMPARISON:? [facility], CT, CT ANGIO HEAD AND NECK, 02/07/2023, 0:18.? [facility], CT, CT STROKE, 02/07/2023, 0:18. ? FINDINGS:? Image quality:? Excellent.? ? CSF Spaces:? Basal cisterns are patent.? No extra-axial fluid collections.? Ventricles are normal in size and shape.? ? Brain:? No intracranial masses or hemorrhage.? Banegas/white matter interface is normal.? Brainstem appears normal.? Diffusion-weighted images demonstrate no acute ischemic insult.? Very mild age-appropriate small-vessel ischemic change.? No chronic ischemic insults.? Normal intravascular flow voids are present.? ? Skull and face:? Calvarium has normal marrow signal.? Orbits appear normal.? ? Sinuses:? Small bilateral maxillary sinus mucous retention cysts.? Sinuses and mastoids are otherwise clear.? ? IMPRESSION:? Negative brain MRI for patient age.? No acute intracranial process. MDM Narrative Medical decision making narrative: This is a 77-year-old male who presents with nausea vomiting and worsened when he opens his eyes or moves his head he states does not feel like the room is spinning but any sort of movement makes it worse which seems very vertigo like. Fairly sudden onset little over 2 hours prior to arrival. No other acute neurologic changes appreciated on exam. Patient received some fluids, Zofran and meclizine orally here. Labs, EKG and imaging were obtained. Patient was within window for tPA but with NIH of 0 and not felt to be an appropriate candidate. Non-contrast Head CT is negative. CTA head and neck imaging shows right dominant vertebral basilar system with diminutive left vertebral artery markedly attenuated distal segment left vertebral artery may represent developmental variant or severe segmental stenosis. Elsewhere no high-grade stenosis or occlusion of the head and neck arteries. Labs show platelets of 96 consistent with patient's prior history of thr ombocytopenia, normal white count and hemoglobin, BUN 28, electrolytes are otherwise appropriate glucose 143, LFTs and troponin are negative. Urine is positive for nitrates, 5-10 wbc's and bacteria was sent for culture. After patient's and discussion with his indwelling: UDS is positive for marijuana consistent with patient history and covid is negative. Recheck of patient he is feeling improved. He states vertigo symptoms have not completely resolved but much better. After discussion with patient and family does have family history of neuro vessels for his mom who required a CABG not because of atherosclerotic but narrow vessels, and a brother who had congenital narrow intracranial vessels and had a stroke in his 20s but is currently in his 80s and doing well. Spoke with [facility]/ stroke neurology: Reviewed patient's findings, thrombocytopenia, from review chart he has not had bone marrow biopsy in his continuing be observed at this time. 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 They recommend MR brain without contrast if negative would recommend to be treated as peripheral vertigo with PT and [place]. If positive would ask for recontact as patient's thrombocytopenia would affect potential management, patient is not a candidate for intervention at this time such as tPA or thrombectomy with improving symptoms and moving outside the window of treatment. Discussed with patient and family they are reluctant to stay for observation secondary to financial concerns particularly if MRI is negative and would be dispositioned home. Patient signed out to Dr. Polk while awaiting MR brain without contrast. If MR is negative and patient is able to ambulate safely can DC home with follow up with ENT/PT for peripheral vertigo, if positive plan for re-consultation with neurology as recommended and admission for stroke. Dr Polk: Received turned over. Review patient's history and physical exam. His CT scan and MRI show no acute pathology. No signs of stroke. When I evaluated him this morning he states he feels much better the vertigo was essentially gone. Will discharge patient home with a prescription for meclizine. He was given return precautions. He expressed understanding and agreement. Discharge Plan Departure Patient Disposition: Home Clinical Impression: Vertigo Instructions: DI for Vertigo Activity Restrictions/Additional Instructions: I do recommend that you continue to take all of your medications as directed. The meclizine is to use as needed for any return of the vertigo/dizziness. Contact your primary doctor for follow-up. Return to the emergency department for new or worsening symptoms. Prescriptions: New meclizine 25 mg tablet 25 mg PO BID PRN (Reason: dizziness) Qty: 15 0RF No Action finasteride 5 MG tablet 5 mg PO QDAY Qty: 0 amlodipine-benazepril 2.5-10 mg capsule See Rx Instructions .ROUTE .COMPLEX Qty: 90 1RF Dose Instruction: TAKE 1 CAPSULE BY MOUTH DAILY Rx Instructions: TAKE 1 CAPSULE BY MOUTH DAILY magnesium oxide 400 mg magnesium tablet 400 mg PO DAILY Lacto.acidophilus-Bif.animalis [Daily Probiotic] 1 cap PO DAILY cholecalciferol (vitamin D3) 50 mcg (2,000 unit) capsule 50 mcg PO DAILY multivitamin Tablet 1 tab PO DAILY Referrals: Emile Valdes MD [Primary Care Provider] - Stand Alone Forms: Patient Portal/API
[2023-02-07] MEDS: ONDANSETRON 4 MG/2 ML INJ IV (00:20)
[2023-02-07] MEDS: MECLIZINE HCL 12.5 MG TABLET 50 MG PO (00:20)
[2023-02-07] MEDS: SODIUM CHLORIDE 0.9% 1,000 ML 1000 ML IV (00:20)
[2023-02-07 00:21] LABS: Add Manual Diff / Slide Review NO; Basophils Absolute Auto 0 /uL (0-100); Basophils Percent Auto 0.3 % (0-2); Eosinophils Absolute Auto 100 /uL (0-450); Eosinophils Percent Auto 1.3 % (2-4); Hematocrit 42.1 % (41-53); Hemoglobin 14.1 g/dL (13.5-17.5); INR 0.9 (0.9-1.3); Lymphocytes Absolute Auto 2400 /uL (1100-4500); Lymphocytes Percent Auto 33.8 % (25-40); Mean Corpuscular HGB Conc 33.5 % (30-36); Mean Corpuscular Hemoglobin 28.5 PG (26-34); Mean Corpuscular Volume 85.1 fL (80-100); Monocytes Absolute Auto 1000 /uL (0-900); Monocytes Percent Auto 14.3 % (3-14); Neutrophils Absolute Auto 3600 /uL (1500-7000); Neutrophils Percent Auto 50.3 % (50-75); Platelet Count 96 X10^3/uL (150-400); Prothrombin Time 10.3 SECONDS (10.1-12.7); Red Blood Cell Count 4.95 X10^6/uL (4.5-5.9); Red Cell Distribution Width 14.4 % (11.6-14.8); White Blood Cell Count 7.2 X10^3/uL (4.5-11.0)
[2023-02-07 00:24] LABS: PTT Partial Thromboplastin Tim 25 SECONDS (26-36)
[2023-02-07 00:26] LABS: Alanine Aminotransferase 28 IU/L (<50); Albumin 4.5 g/dL (3.5-5.0); Albumin Globulin Ratio 1.6 (1.0-2.8); Alkaline Phosphatase 57 U/L (38-126); Aspartate Aminotransferase 37 IU/L (17-59); BUN Creatinine Ratio 23.7 (6-22); Bilirubin Total 0.3 mg/dL (0.2-1.3); Blood Urea Nitrogen 28 mg/dL (9-20); Calcium 9.9 mg/dL (8.4-10.2); Carbon Dioxide 22 mmol/L (22-32); Chloride 106 mmol/L (98-107); Creatine Kinase 111 U/L (55-170); Estimated Glomerular Filt Rate > 60 mL/min (>60); Ethanol (ETOH) < 10 mg/dL; Globulin 2.9 g/dL (1.7-4.1); Glucose 143 mg/dL (80-110); HEMOLYSIS < 15 (0-50); Potassium 3.6 mmol/L (3.4-5.1); Sodium 138 mmol/L (137-145); Total Protein 7.4 g/dL (6.3-8.2)
[2023-02-07 00:37] LABS: COVID19 -Nasal RAPID Negative (Negative)
[2023-02-07 00:38] LABS: Troponin I < 0.012 ng/mL (0.01-0.034)
[2023-02-07 00:42] LABS: Lipase 133 U/L (23-300)
[2023-02-07 01:23] LABS: Ur Creatinine 50 (Normal); Ur Specific Gravity 1.025 (Normal); Urine pH 5 (Normal)
[2023-02-07 01:24] LABS: UR Morphine/Opiate cutoff 300 Negative (Negative); Urine Amphetamines Negative (Negative); Urine Barbiturates Negative (Negative); Urine Benzodiazepines Negative (Negative); Urine Cocaine Negative (Negative); Urine MDMA Negative (Negative); Urine Methadone Negative (Negative); Urine Methamphetamines Negative (Negative); Urine Oxycodone Negative (Negative); Urine Phencyclidine Negative (Negative); Urine Tetrahydrocannabinol Positive (Negative); Urine Tricyclic Antidepressant Negative (Negative)
[2023-02-07 01:30] LABS: Bacteria Urine Moderate (10-30); Culture Indicated Urine Specimen Cultured; RBC Urine 1-5/HPF (0-5/HPF); Squamous Epithelial Cell Urine None Seen (0-5/HPF); WBC Urine 5-10/HPF (0-5/HPF)
--- NOTE | 2023-02-07 02:13 | DI.MRI.S_ITS ---
PROCEDURE: MR HEAD/BRAIN WO CON INDICATIONS: vertigo new onset, Left vert artery jimbo narrow TECHNIQUE: Noncontrast axial T1 spin echo, axial T2 fast spin echo, sagittal and axial FLAIR, coronal T2 fast spin echo, axial gradient echo, axial diffusion and ADC through the brain. COMPARISON: [facility], CT, CT ANGIO HEAD AND NECK, 02/07/2023, 0:18. [facility], CT, CT STROKE, 02/07/2023, 0:18. FINDINGS: Image quality: Excellent. CSF Spaces: Basal cisterns are patent. No extra-axial fluid collections. Ventricles are normal in size and shape. Brain: No intracranial masses or hemorrhage. Ban[place]/white matter interface is normal. Brainstem appears normal. Diffusion-weighted images demonstrate no acute ischemic insult. Very mild age-appropriate small-vessel ischemic change. No chronic ischemic insults. Normal intravascular flow voids are present. Skull and face: Calvarium has normal marrow signal. Orbits appear normal. Sinuses: Small bilateral maxillary sinus mucous retention cysts. Sinuses and mastoids are otherwise clear. IMPRESSION: Negative brain MRI for patient age. No acute intracranial process. Dictated by: Norman Villalobos M.D. on 02/07/2023 at 7:55 Approved by: Norman Villalobos M.D. on 02/07/2023 at 7:59
== END 2023-02-07 08:33 | disposition home or self-care (01) ==
PROVIDERS: Emergency Medicine; Emergency Provider Emergency Medicine; Family Provider Family Medicine; PCP Family Medicine
DX: R42 Dizziness and giddiness (principal); D69.6 Thrombocytopenia, unspecified; Z20.822 Contact with and (suspected) exposure to COVID-19
CPT/HCPCS: 36415; 70450; 70496; 70498; 70551; 80053; 80305; 80320; 81003; 81015; 82550; 83690; 84484; 85025; 85610; 85730; 87077; 87086; 87186; 87635; 93005; 96361; 96374; 99284; 99285; C9803; J2405; Q9967

== ENCOUNTER → 2023-03-09 09:01 | Outpatient (CLI) | payer MEDICARE, OTHER, SELFPAY | PROVIDERS: Family Provider Family Medicine; PCP Family Medicine; Referring Provider Family Medicine; Visit Provider Family Medicine | DX: Z01.818 Encounter for other preprocedural examination (principal) | CPT/HCPCS: 87077; 87086; 87186 ==

== ENCOUNTER 2023-09-10 13:16 | Emergency (ER) | payer MEDICARE, OTHER, SELFPAY ==
[2023-09-10] VITALS (12 sets, daily range): BP systolic 121–180; BP diastolic 80–100; PULSE 63–79; RESP 7–18; TEMP 36.8; O2SAT 95–98; BMI 28.0
--- NOTE | 2023-09-10 13:22 | DI.RAD.S_ITS ---
PROCEDURE: XR CHEST 1V INDICATIONS: Short of breath TECHNIQUE: One view of the chest was acquired. COMPARISON: None. FINDINGS: Surgical changes and devices: Electronic device can be seen involving the left upper thorax. Lungs and pleura: On this semiupright portable chest examination, no large pneumothorax or large pleural effusions are seen. No focal infiltrates are seen. Low lung volumes are noted. This causes a crowded appearance to the lung markings and limits evaluation. Mediastinum: Mediastinal contours appear normal. Heart size is normal. Bones and chest wall: No suspicious bony lesions. Age-appropriate bony degenerative changes are seen. Overlying soft tissues appear unremarkable. IMPRESSION: Limited portable chest examination, without a significant cardiopulmonary abnormality identified. Dictated by: Cuate Whiting M.D. on 09/10/2023 at 13:33 Approved by: Cuate Whiting M.D. on 09/10/2023 at 13:34
[2023-09-10 13:40] LABS: Add Manual Diff / Slide Review NO; Basophils Absolute Auto 0 /uL (0-100); Basophils Percent Auto 0.4 % (0-2); Eosinophils Absolute Auto 100 /uL (0-450); Eosinophils Percent Auto 1.6 % (2-4); Hematocrit 42.6 % (41-53); Hemoglobin 14.5 g/dL (13.5-17.5); Lymphocytes Absolute Auto 2000 /uL (1100-4500); Lymphocytes Percent Auto 33.9 % (25-40); Mean Corpuscular HGB Conc 34.1 % (30-36); Mean Corpuscular Volume 84.9 fL (80-100); Monocytes Absolute Auto 900 /uL (0-900); Neutrophils Absolute Auto 2900 /uL (1500-7000); Neutrophils Percent Auto 49.1 % (50-75); Platelet Count 93 X10^3/uL (150-400); Red Blood Cell Count 5.01 X10^6/uL (4.5-5.9); Red Cell Distribution Width 13.9 % (11.6-14.8); White Blood Cell Count 5.9 X10^3/uL (4.5-11.0)
[2023-09-10 13:52] LABS: Alanine Aminotransferase 30 IU/L (<50); Albumin 4.7 g/dL (3.5-5.0); Albumin Globulin Ratio 1.7 (1.0-2.8); Alkaline Phosphatase 70 U/L (38-126); Aspartate Aminotransferase 31 IU/L (17-59); BUN Creatinine Ratio 15.4 (6-22); Bilirubin Total 0.8 mg/dL (0.2-1.3); Blood Urea Nitrogen 20 mg/dL (9-20); Calcium 9.4 mg/dL (8.4-10.2); Carbon Dioxide 23 mmol/L (22-32); Chloride 108 mmol/L (98-107); Creatine Kinase 82 U/L (55-170); Estimated Glomerular Filt Rate 57 mL/min (>60); Globulin 2.8 g/dL (1.7-4.1); Glucose 101 mg/dL (80-110); HEMOLYSIS < 15 (0-50); Lipase 147 U/L (23-300); Magnesium 2.1 mg/dL (1.6-2.3); Potassium 3.9 mmol/L (3.4-5.1); Sodium 139 mmol/L (137-145); Total Protein 7.5 g/dL (6.3-8.2)
[2023-09-10] MEDS: SODIUM CHLORIDE 0.9% FLUSH 10 ML IV (13:58)
[2023-09-10 14:03] LABS: NT-proBNP (BNP-Adult 18+) 118 pg/mL (<450); Troponin I < 0.012 ng/mL (0.01-0.034)
--- NOTE | 2023-09-10 14:08 | ED.GENADULT ---
HPI - General Adult General Chief complaint: Shortness of Breath/Dyspnea Stated complaint: SOB, dizzy, arrhythmias- stent put in recently Time Seen by Provider: 09/10/23 13:19 Source: patient and family Mode of arrival: Ambulatory History of Present Illness HPI narrative: Patient is a 77-year-old male. Recent history of cardiac catheterization and stent placement while he was on vacation who is here for evaluation of episodes of feeling like his heart is beating fast and skipping beats. He states that it does cause him to become somewhat dizzy and a little short of breath. They have been somewhat infrequent but over the past couple days have been more frequent and lasting longer. He denies chest pain. He is on metoprolol 12.5 mg twice a day. He has a ZIO patch in place ordered by his crew clerk. At the time of my evaluation he was not having symptoms. Related Data Home Medications Medication Instructions Recorded Confirmed finasteride 5 mg tablet 5 mg PO QDAY ##0 04/09/16 01/25/23 cholecalciferol (vitamin D3) 50 50 mcg PO DAILY 06/04/20 01/25/23 mcg (2,000 unit) capsule multivitamin 1 tab PO DAILY 06/04/20 01/25/23 Lacto.acidophilus-Bif.animalis 1 cap PO DAILY 10/23/21 01/25/23 [Daily Probiotic] magnesium oxide 400 mg PO DAILY 10/23/21 01/25/23 aspirin 81 mg tablet,delayed 81 mg PO DAILY Cardiac stent 08/29/23 08/29/23 release (Sumit Low Dose Aspirin) 08-14-23 atorvastatin 80 mg tablet 80 mg PO DAILY Cardiac stent 08/29/23 08/29/23 placed 08-14-23 metoprolol tartrate 25 mg tablet 12.5 mg PO BID Cardiac stent 08/29/23 08/29/23 08-14-23 ticagrelor 90 mg tablet (Brilinta) 90 mg PO BID Cardiac stent placed 08/29/23 08/29/23 08-14-23 Previous Rx's Medication Instructions Recorded amlodipine 2.5 mg-benazepril 10 mg 1 cap PO DAILY #90 caps 05/05/23 capsule Allergies Allergy/AdvReac Type Severity Reaction Status Date / Time lobster Allergy Intermediate Vomiting Verified 09/10/23 13:20 Review of Systems Review of Systems ROS Unobtainable: All systems reviewed & are unremarkable except as noted in HPI and below Patient History Medical History Paroxysmal atrial fibrillation Transaminitis Eczematous dermatitis Atrial fibrillation History of UTI Urinary retention Enlarged prostate Hypothyroidism Gallbladder disease Cough Shortness of breath Chills Fever Hypothyroidism (01/17/15) Hypertension (01/17/15) Benign prostatic hyperplasia (01/17/15) Surgical History H/O cardiac radiofrequency ablation (~08/2017) H/O knee surgery (~1959) History of tonsillectomy (~1954) Family History Brother Age: 80 Heart disease Hypertension High cholesterol Stroke Father Heart disease High cholesterol Grandfather Stroke Grandmother Dementia Mother Heart disease Hypertension High cholesterol Grandmother TB (tuberculosis) Alcoholic Sister Age: 78 Hypertension Sister Age: 65 Hypertension Social History marital status: household members: spouse Smoking Status: Former smoker alcohol intake: never substance use type: does not use Smoking Status: Former smoker alcohol intake frequency: a few times a week Substance Use Type: marijuana Exam Initial Vital Signs Initial Vital Signs: Vital Signs Pulse Rate 79 09/10/23 13:25 Respiratory Rate 7 L 09/10/23 13:25 Pulse Oximetry 97 09/10/23 13:25 Oxygen Delivery Method Room Air 09/10/23 13:25 Const General: cooperative, comfortable and No ill appearing HENHI Head: normal to inspection and normocephalic Resp Effort & Inspection: normal respiratory effort Auscultation: clear to auscultation bilaterally Cardio Rate: regular rate Rhythm: regular rhythm GI Inspection: normal to inspection and non-distended Skin General: no rashes or lesions noted Lesions: no lesions Rashes: no rashes Neuro General: patient alert, patient awake, patient oriented x3 and moves all extremities Speech: speech normal Extrem General: capillary refill normal Course Orders Ordered: ED Orders 09/10/23 13:22 XR chest 1V Stat 09/10/23 13:29 EKG-12 Lead Stat 09/10/23 13:30 Complete Blood Count AUTO DIFF Stat Comprehensive Metabolic Panel Stat Lipase Stat Magnesium Stat NT-proBNP (BNP-Adult 18+) Stat Troponin & CK Cardiac Panel Stat Sodium Chloride (Sodium Chloride 0.9% Flush) 10 ml IV BID SHIELA Last Admin: 09/10/23 13:58 Dose: 10 ml Documented By: RB Sodium Chloride (Sodium Chloride 0.9% Flush) 10 ml IV PRN PRN PRN Reason: Flush Vital Signs Vital signs: Vital Signs - 8 hr 09/10/23 13:25 09/10/23 13:30 09/10/23 13:30 Temperature Pulse Rate 79 71 Respiratory Rate 7 L 9 L Blood Pressure 121/82 Pulse Oximetry 97 98 Oxygen Delivery Method Room Air Room Air 09/10/23 13:35 09/10/23 13:45 09/10/23 14:00 Temperature 98.3 F Pulse Rate 73 73 68 Respiratory Rate 18 14 13 Blood Pressure 180/100 H Pulse Oximetry 97 97 96 Oxygen Delivery Method Room Air 09/10/23 14:00 09/10/23 14:15 09/10/23 14:30 Temperature Pulse Rate 66 Respiratory Rate 10 L Blood Pressure 163/92 H 127/80 Pulse Oximetry 96 Oxygen Delivery Method 09/10/23 14:30 09/10/23 14:45 Temperature Pulse Rate 67 67 Respiratory Rate 15 14 Blood Pressure Pulse Oximetry 95 96 Oxygen Delivery Method Room Air Medical Decision Making Lab Data Lab results reviewed: Yes I reviewed the patient's lab results. 09/10/23 13:30 09/10/23 13:30 Labs: Lab Results 09/10/23 Range/Units 13:30 WBC 5.9 (4.5-11.0) X10^3/uL RBC 5.01 (4.5-5.9) X10^6/uL Hgb 14.5 (13.5-17.5) g/dL Hct 42.6 (41-53) % MCV 84.9 (80-100) fL MCH 29.0 (26-34) PG MCHC 34.1 (30-36) % RDW 13.9 (11.6-14.8) % Plt Count 93 L (150-400) X10^3/uL Neut % (Auto) 49.1 L (50-75) % Lymph % (Auto) 33.9 (25-40) % [place] % (Auto) 15.0 H (3-14) % Eos % (Auto) 1.6 L (2-4) % Baso % (Auto) 0.4 (0-2) % Neut # (Auto) 2900 (4411-0988) /uL Lymph # (Auto) 2000 (6862-5205) /uL [place] # (Auto) 900 (0-900) /uL Eos # (Auto) 100 (0-450) /uL Baso # (Auto) 0 (0-100) /uL Sodium 139 (137-145) mmol/L Potassium 3.9 (3.4-5.1) mmol/L Chloride 108 H (98-107) mmol/L Carbon Dioxide 23 (22-32) mmol/L BUN 20 (9-20) mg/dL Creatinine 1.30 H (0.66-1.25) mg/dL Estimated GFR 57 L (>60) mL/min BUN/Creatinine Ratio 15.4 (6-22) Glucose 101 (80-110) mg/dL Calcium 9.4 (8.4-10.2) mg/dL Magnesium 2.1 (1.6-2.3) mg/dL Total Bilirubin 0.8 (0.2-1.3) mg/dL AST 31 (17-59) IU/L ALT 30 (<50) IU/L Alkaline Phosphatase 70 (38-126) U/L Total Creatine Kinase 82 (55-170) U/L Troponin I < 0.012 (0.01-0.034) ng/mL NT-Pro-B Natriuret Pep 118 (<450) pg/mL Total Protein 7.5 (6.3-8.2) g/dL Albumin 4.7 (3.5-5.0) g/dL Globulin 2.8 (1.7-4.1) g/dL Albumin/Globulin Ratio 1.7 (1.0-2.8) Lipase 147 (23-300) U/L Imaging Data Chest x-ray: Radiologist's Impression: PROCEDURE: XR CHEST 1V INDICATIONS: Short of breath TECHNIQUE: One view of the chest was acquired. COMPARISON: None. FINDINGS: Surgical changes and devices: Electronic device can be seen involving the left upper thorax. Lungs and pleura: On this semiupright portable chest examination, no large pneumothorax or large pleural effusions are seen. No focal infiltrates are seen. Low lung volumes are noted. This causes a crowded appearance to the lung markings and limits evaluation. Mediastinum: Mediastinal contours appear normal. Heart size is normal. Bones and chest wall: No suspicious bony lesions. Age-appropriate bony degenerative changes are seen. Overlying soft tissues appear unremarkable. IMPRESSION: Limited portable chest examination, without a significant cardiopulmonary abnormality identified. ECG Data Attestation: I personally reviewed and interpreted this ECG as follows: Interpretation: Sinus rhythm Ventricular rate is 71 One PVC Normal QRS Right bundle-branch block No ST T wave changes MDM Narrative Medical decision making narrative: How the time of my initial evaluation patient was not having any symptoms. He has a right bundle-branch block with 1 PVC and sinus rhythm on his EKG. During my evaluation of him he had a return of the symptoms. This corresponded to a bigeminy pattern on his EKG. His labs are unremarkable. In between the episodes of the bigeminy he was asymptomatic. I did discuss the case with on-call cardiology had [facility] and [place] who recommended increasing his metoprolol to 25 mg twice a day. The clinic will also call them on Tuesday for follow-up. Patient was given return precautions and follow-up instructions. He expressed understanding and agreement. Discharge Plan Departure Patient Disposition: Home Clinical Impression: Ventricular bigeminy Instructions: DI for Palpitations Activity Restrictions/Additional Instructions: After discussion with the crew clerk they recommended increasing your metoprolol from 12.5 mg twice a day to 25 mg twice a day. You can also increase your magnesium from 2 tablets a day to 3 tablets a day. Continue the rest of your medications as directed. Keep all of your scheduled medical appointments. Return to the emergency department for new symptoms like we discussed. Prescriptions: No Action finasteride 5 MG tablet 5 mg PO QDAY Qty: 0 amlodipine-benazepril 2.5-10 mg capsule 1 cap PO DAILY Qty: 90 2RF magnesium oxide 400 mg magnesium tablet 400 mg PO DAILY Lacto.acidophilus-Bif.animalis [Daily Probiotic] 1 cap PO DAILY aspirin [Sumit Low Dose Aspirin] 81 mg tablet,delayed release (DR/EC) 81 mg PO DAILY Patient Comments: Not delayed release! atorvastatin 80 mg tablet 80 mg PO DAILY Brilinta 90 mg tablet 90 mg PO BID metoprolol tartrate 25 mg tablet 12.5 mg PO BID cholecalciferol (vitamin D3) 50 mcg (2,000 unit) capsule 50 mcg PO DAILY multivitamin Tablet 1 tab PO DAILY Referrals: Emile Valdes MD [Primary Care Provider] - Stand Alone Forms: Patient Portal/API
== END 2023-09-10 15:50 | disposition home or self-care (01) ==
PROVIDERS: Emergency Provider Emergency Medicine; Family Provider Family Medicine; PCP Family Medicine
DX: R00.8 Other abnormalities of heart beat (principal); R06.02 Shortness of breath
CPT/HCPCS: 36415; 71045; 80053; 82550; 83690; 83735; 83880; 84484; 85025; 93005; 99284

== ENCOUNTER → 2023-10-01 08:03 | Outpatient (CLI) | payer MEDICARE, OTHER, SELFPAY ==
[2023-10-01 09:34] LABS: Alanine Aminotransferase 24 IU/L (<50); Albumin 4.5 g/dL (3.5-5.0); Albumin Globulin Ratio 1.7 (1.0-2.8); Alkaline Phosphatase 61 U/L (38-126); Aspartate Aminotransferase 29 IU/L (17-59); BUN Creatinine Ratio 20.2 (6-22); Bilirubin Total 0.8 mg/dL (0.2-1.3); Blood Urea Nitrogen 24 mg/dL (9-20); Calcium 9.2 mg/dL (8.4-10.2); Carbon Dioxide 24 mmol/L (22-32); Chloride 109 mmol/L (98-107); Cholesterol 144 mg/dL (140-199); Estimated Glomerular Filt Rate > 60 mL/min (>60); Globulin 2.6 g/dL (1.7-4.1); Glucose 93 mg/dL (80-110); HDL Cholesterol 57 mg/dL (40-60); HEMOLYSIS < 15 (0-50); LDL Cholesterol Calculated 63 mg/dL (<100); Potassium 4.4 mmol/L (3.4-5.1); Sodium 139 mmol/L (137-145); Total Protein 7.1 g/dL (6.3-8.2); Triglycerides 122 mg/dL (35-150)
== END ==
PROVIDERS: Family Provider Family Medicine; PCP Family Medicine; Referring Provider Family Medicine; Visit Provider Family Medicine
DX: E78.2 Mixed hyperlipidemia (principal); I10 Essential (primary) hypertension; Z95.5 Presence of coronary angioplasty implant and graft
CPT/HCPCS: 36415; 80053; 80061

== ENCOUNTER 2023-12-19 10:15 | Outpatient (RCR) | payer MEDICARE, OTHER, SELFPAY | END 2023-12-19 12:15 | LOC: CAR 10:15 | PROVIDERS: Family Provider Family Medicine; PCP Family Medicine; Referring Provider Family Medicine; Visit Provider Family Medicine | DX: Z95.5 Presence of coronary angioplasty implant and graft (principal); I25.10 Atherosclerotic heart disease of native coronary artery without angina pectoris | CPT/HCPCS: 93798 ==

== ENCOUNTER → 2024-01-26 07:51 | Outpatient (CLI) | payer MEDICARE, OTHER, SELFPAY ==
[2024-01-26 09:50] LABS: Add Manual Diff / Slide Review NO; Basophils Absolute Auto 0 /uL (0-100); Basophils Percent Auto 0.4 % (0-2); Eosinophils Absolute Auto 200 /uL (0-450); Eosinophils Percent Auto 5.2 % (2-4); Hematocrit 39.8 % (41-53); Hemoglobin 13.5 g/dL (13.5-17.5); Lymphocytes Absolute Auto 1200 /uL (1100-4500); Lymphocytes Percent Auto 25.5 % (25-40); Mean Corpuscular HGB Conc 33.8 % (30-36); Mean Corpuscular Hemoglobin 29.5 PG (26-34); Mean Corpuscular Volume 87.2 fL (80-100); Monocytes Absolute Auto 900 /uL (0-900); Neutrophils Absolute Auto 2400 /uL (1500-7000); Neutrophils Percent Auto 49.9 % (50-75); Platelet Count 90 X10^3/uL (150-400); Red Blood Cell Count 4.57 X10^6/uL (4.5-5.9); Red Cell Distribution Width 13.1 % (11.6-14.8); White Blood Cell Count 4.8 X10^3/uL (4.5-11.0)
[2024-01-26 10:20] LABS: Alanine Aminotransferase 177 IU/L (<50); Albumin 4.1 g/dL (3.5-5.0); Albumin Globulin Ratio 1.5 (1.0-2.8); Alkaline Phosphatase 472 U/L (38-126); Aspartate Aminotransferase 107 IU/L (17-59); BUN Creatinine Ratio 22.6 (6-22); Bilirubin Total 0.7 mg/dL (0.2-1.3); Blood Urea Nitrogen 24 mg/dL (9-20); Carbon Dioxide 23 mmol/L (22-32); Chloride 108 mmol/L (98-107); Estimated Glomerular Filt Rate > 60 mL/min (>60); Globulin 2.8 g/dL (1.7-4.1); HEMOLYSIS < 15 (0-50); Potassium 4.3 mmol/L (3.4-5.1); Sodium 138 mmol/L (137-145); Total Protein 6.9 g/dL (6.3-8.2)
[2024-01-26 10:38] LABS: Calcium 9.3 mg/dL (8.4-10.2); Glucose 96 mg/dL (80-110)
[2024-01-26 10:49] LABS: Prostate Specific Antigen Scrn 1.26 ng/mL (0.1-4.0)
[2024-01-26 11:06] LABS: TSH w/ Reflex to FT4 7.13 uIU/mL (0.47-4.68)
[2024-01-26 18:12] LABS: Free T4, Direct Thyroxine 0.86 ng/dL (0.78-2.19)
== END ==
PROVIDERS: Family Provider Family Medicine; PCP Family Medicine; Referring Provider Family Medicine; Visit Provider Family Medicine
DX: I25.10 Atherosclerotic heart disease of native coronary artery without angina pectoris (principal); Z12.5 Encounter for screening for malignant neoplasm of prostate; I10 Essential (primary) hypertension; E78.2 Mixed hyperlipidemia; Z86.79 Personal history of other diseases of the circulatory system; N40.1 Benign prostatic hyperplasia with lower urinary tract symptoms; N13.8 Other obstructive and reflux uropathy
CPT/HCPCS: 36415; 80053; 84439; 84443; 85025; G0103

== ENCOUNTER → 2024-02-04 15:41 | Outpatient (CLI) | payer MEDICARE, OTHER, SELFPAY ==
--- NOTE | 2024-02-04 15:46 | DI.MRI.S_ITS ---
PROCEDURE: MR AB PANCREATIC/MRCP PROTOCOL INDICATIONS: elevated liver enzymes history of bilary stent and cholydocl TECHNIQUE: Coronal HASTE through the abdomen, axial 2-D FLASH in- and [id number], and breath-hold T2 FSE with fat saturation through the biliary system and pancreas. Oblique coronal and axial thin-slice HASTE, radial thick-slab HASTE centered on the extrahepatic bile ducts. Intravenous secretin: Not requested. COMPARISON: [facility], MR, MR ABDOMEN WO/W CON, 11/01/2021, 13:39. [facility], US, US ABDOMEN LIMITED, 02/07/2024, 10:51. FINDINGS: Image quality: Diagnostic Lower chest: No basal effusions. Liver: Unremarkable Gallbladder and biliary system: No pathologic biliary ductal dilation. Gallbladder is not seen. Pancreas: No ductal dilation. No solid mass. Spleen: Nonenlarged Adrenals: No discrete nodules Kidneys: There are renal cysts. No solid renal mass. No hydronephrosis Vessels and lymph nodes: The main portal vein is patent. No abdominal aortic aneurysm. No pathologic lymph nodes by size criteria. Bowel and peritoneum: No pathologic ascites or small bowel obstruction Body wall: Unremarkable Bones: There are degenerative changes. IMPRESSION: No biliary ductal dilation. The gallbladder is not seen. No solid lesion identified in the liver. No pancreatic ductal dilation. Other findings above. Approved by: Gavino Cueva M.D. on 02/07/2024 at 12:05
== END ==
LOC: MRI 15:43
PROVIDERS: Family Provider Family Medicine; PCP Family Medicine; Referring Provider Family Medicine; Visit Provider Family Medicine
DX: K80.50 Calculus of bile duct without cholangitis or cholecystitis without obstruction (principal); R74.8 Abnormal levels of other serum enzymes; N28.1 Cyst of kidney, acquired
CPT/HCPCS: 74183; A9579

== ENCOUNTER → 2024-02-07 10:43 | Outpatient (CLI) | payer MEDICARE, OTHER, SELFPAY ==
--- NOTE | 2024-02-07 10:44 | DI.US.S_ITS ---
PROCEDURE: US ABDOMEN LIMITED INDICATIONS: LIVER ENZYME ELEVATION / HX OF CHOLEDOCHOLITHIASIS TECHNIQUE: Real-time scanning was performed of the abdominal and retroperitoneal organs, with image documentation. COMPARISON: [facility], US ABDOMEN COMPLETE, 05/30/2020, 7:28. FINDINGS: Liver: Liver is normal in size and homogeneous in echotexture. Liver measures 13.1 cm in CC dimension of the right lobe. Main portal vein 1.0 cm hepatopetal normal flow. Gallbladder: Status post cholecystectomy. Biliary ducts: Intrahepatic bile ducts are non-dilated. Extrahepatic common hepatic duct caliber measures 4 mm. Common bile duct is not well visualized due to overlying bowel gas per notes. Normal is 6-7 mm or less in diameter, or 10 mm or less post-cholecystectomy. Pancreas: Pancreas is not well visualized due to overlying bowel gas per notes. Miscellaneous: Approximately 5.2 cm right renal cyst similar to the prior exam. other smaller cysts are noted. IMPRESSION: Extrahepatic common hepatic duct caliber measures 4 mm. Common bile duct is not well visualized due to overlying bowel gas per notes. Status post cholecystectomy. If symptoms persist or worsen, CT or MRI abdomen could be performed Dictated by: Faustino Cervantes M.D. on 02/07/2024 at 16:45 Approved by: Faustino Cervantes M.D. on 02/07/2024 at 16:59
== END ==
PROVIDERS: Family Provider Family Medicine; PCP Family Medicine; Referring Provider Family Medicine; Visit Provider Family Medicine
DX: N28.1 Cyst of kidney, acquired (principal); R74.8 Abnormal levels of other serum enzymes; Z90.49 Acquired absence of other specified parts of digestive tract
CPT/HCPCS: 76705

== ENCOUNTER → 2024-02-08 09:44 | Outpatient (CLI) | payer MEDICARE, OTHER, SELFPAY ==
[2024-02-08 11:38] LABS: Prothrombin Time 11.5 SECONDS (9.4-12.5)
[2024-02-08 11:58] LABS: Alanine Aminotransferase 58 IU/L (<50); Albumin Globulin Ratio 1.5 (1.0-2.8); Alkaline Phosphatase 235 U/L (38-126); Aspartate Aminotransferase 42 IU/L (17-59); BUN Creatinine Ratio 22.3 (6-22); Bilirubin Total 0.5 mg/dL (0.2-1.3); Blood Urea Nitrogen 25 mg/dL (9-20); Calcium 9.5 mg/dL (8.4-10.2); Carbon Dioxide 21 mmol/L (22-32); Chloride 107 mmol/L (98-107); Estimated Glomerular Filt Rate > 60 mL/min (>60); Globulin 2.7 g/dL (1.7-4.1); Glucose 98 mg/dL (80-110); HEMOLYSIS < 15 (0-50); Potassium 4.5 mmol/L (3.4-5.1); Sodium 137 mmol/L (137-145); Total Protein 6.7 g/dL (6.3-8.2)
== END ==
PROVIDERS: Family Provider Family Medicine; PCP Family Medicine; Referring Provider Family Medicine; Visit Provider Family Medicine
DX: Z86.79 Personal history of other diseases of the circulatory system (principal); R74.8 Abnormal levels of other serum enzymes; I25.10 Atherosclerotic heart disease of native coronary artery without angina pectoris; K80.50 Calculus of bile duct without cholangitis or cholecystitis without obstruction; Z79.899 Other long term (current) drug therapy; K83.1 Obstruction of bile duct
CPT/HCPCS: 36415; 80053; 85610

== ENCOUNTER → 2024-03-13 07:49 | Outpatient (CLI) | payer MEDICARE, OTHER, SELFPAY ==
[2024-03-13 09:11] LABS: Alanine Aminotransferase 25 IU/L (<50); Albumin 4.1 g/dL (3.5-5.0); Albumin Globulin Ratio 1.5 (1.0-2.8); Alkaline Phosphatase 86 U/L (38-126); Aspartate Aminotransferase 31 IU/L (17-59); BUN Creatinine Ratio 20.4 (6-22); Bilirubin Total 0.7 mg/dL (0.2-1.3); Blood Urea Nitrogen 23 mg/dL (9-20); Calcium 9.3 mg/dL (8.4-10.2); Carbon Dioxide 23 mmol/L (22-32); Chloride 105 mmol/L (98-107); Estimated Glomerular Filt Rate > 60 mL/min (>60); Globulin 2.7 g/dL (1.7-4.1); Glucose 94 mg/dL (80-110); HEMOLYSIS < 15 (0-50); Potassium 4.3 mmol/L (3.4-5.1); Sodium 135 mmol/L (137-145); Total Protein 6.8 g/dL (6.3-8.2)
== END ==
PROVIDERS: Family Provider Family Medicine; PCP Family Medicine; Referring Provider Family Medicine; Visit Provider Family Medicine
DX: R74.8 Abnormal levels of other serum enzymes (principal); K80.50 Calculus of bile duct without cholangitis or cholecystitis without obstruction
CPT/HCPCS: 36415; 80053

== ENCOUNTER → 2024-04-26 07:36 | Outpatient (CLI) | payer MEDICARE, OTHER, SELFPAY ==
[2024-04-26 08:51] LABS: Alanine Aminotransferase 30 IU/L (<50); Albumin 4.3 g/dL (3.5-5.0); Albumin Globulin Ratio 1.6 (1.0-2.8); Alkaline Phosphatase 69 U/L (38-126); Aspartate Aminotransferase 33 IU/L (17-59); Bilirubin Total 0.5 mg/dL (0.2-1.3); Bilirubin Unconjugated 0.4 mg/dL (0.0-1.1); Cholesterol 180 mg/dL (140-199); Globulin 2.7 g/dL (1.7-4.1); HDL Cholesterol 68 mg/dL (40-60); HEMOLYSIS < 15 (0-50); LDL Cholesterol Calculated 86 mg/dL (<100); Triglycerides 129 mg/dL (35-150)
== END ==
PROVIDERS: Family Provider Family Medicine; PCP Family Medicine; Referring Provider Internal Medicine; Visit Provider Internal Medicine
DX: K75.9 Inflammatory liver disease, unspecified (principal); I25.10 Atherosclerotic heart disease of native coronary artery without angina pectoris
CPT/HCPCS: 36415; 80061; 80076

== ENCOUNTER → 2024-10-09 07:25 | Outpatient (CLI) | payer MEDICARE, OTHER, SELFPAY ==
[2024-10-09 09:09] LABS: Prostate Specific Antigen 1.14 ng/mL (0.10-4.00)
== END ==
PROVIDERS: Family Provider Family Medicine; PCP Family Medicine; Referring Provider Urology; Visit Provider Urology
DX: N40.1 Benign prostatic hyperplasia with lower urinary tract symptoms (principal); R97.20 Elevated prostate specific antigen [PSA]
CPT/HCPCS: 36415; 84153

== ENCOUNTER → 2024-10-23 08:49 | Outpatient (CLI) | payer MEDICARE, OTHER, SELFPAY ==
[2024-10-23 10:19] LABS: Alanine Aminotransferase 23 IU/L (<50); Albumin 4.5 g/dL (3.5-5.0); Albumin Globulin Ratio 1.9 (1.0-2.8); Alkaline Phosphatase 64 U/L (38-126); Aspartate Aminotransferase 33 IU/L (17-59); Bilirubin Total 0.7 mg/dL (0.2-1.3); Bilirubin Unconjugated 0.4 mg/dL (0.0-1.1); Globulin 2.4 g/dL (1.7-4.1); HEMOLYSIS < 15 (0-50); Total Protein 6.9 g/dL (6.3-8.2)
== END ==
PROVIDERS: Family Provider Family Medicine; PCP Family Medicine; Referring Provider Internal Medicine; Visit Provider Internal Medicine
DX: I25.10 Atherosclerotic heart disease of native coronary artery without angina pectoris (principal)
CPT/HCPCS: 36415; 80076

== ENCOUNTER 2024-11-23 11:49 | Emergency (ER) | payer MEDICARE, OTHER, SELFPAY ==
[2024-11-23] VITALS (11 sets, daily range): BP systolic 134–169; BP diastolic 83–95; PULSE 75–86; RESP 16; TEMP 37–38.2; O2SAT 96–99; BMI 28.8
--- NOTE | 2024-11-23 12:04 | EKG_ITS ---
[facility] [address] [place] [id number] Test Date: 2024-11-23 Pat Name: El Covarrubias Department: [facility] Room: Gender: Male Electrician: BELKYS : 1945 Requested By: Order Number: [id number] Reading MD: Jordy Rogers MD Measurements Intervals [place] Rate: 76 P: 25 VA: 192 QRS: 49 QRSD: 128 T: 25 QT: 404 QTc: 454 Interpretive Statements Normal sinus rhythm Right bundle branch block NO SIGNIFICANT CHANGE FROM PRIOR TRACING Electronically Signed On 11-23-2024 12:16:42 PDT by Jordy Rogers MD
[2024-11-23 12:33] LABS: Add Manual Diff / Slide Review NO; Hematocrit 39.9 % (41-53); Hemoglobin 13.6 g/dL (13.5-17.5); Lymphocytes Absolute Auto 500 /uL (1100-4500); Mean Corpuscular HGB Conc 34.0 % (30-36); Mean Corpuscular Hemoglobin 28.1 PG (26-34); Mean Corpuscular Volume 82.5 fL (80-100); Platelet Count 61 X10^3/uL (150-400)
[2024-11-23 12:43] LABS: Alanine Aminotransferase 22 IU/L (<50); Albumin 4.5 g/dL (3.5-5.0); Albumin Globulin Ratio 1.6 (1.0-2.8); Alkaline Phosphatase 65 U/L (38-126); Blood Urea Nitrogen 22 mg/dL (9-20); Calcium 9.3 mg/dL (8.4-10.2); Carbon Dioxide 25 mmol/L (22-32); Chloride 103 mmol/L (98-107); Estimated Glomerular Filt Rate > 60 mL/min (>60); Globulin 2.8 g/dL (1.7-4.1); Glucose 108 mg/dL (70-99); HEMOLYSIS < 15 (0-50); Lipase 103 U/L (23-300); Potassium 4.0 mmol/L (3.4-5.1); Sodium 137 mmol/L (137-145); Total Protein 7.3 g/dL (6.3-8.2)
--- NOTE | 2024-11-23 18:15 | ED.GENADULT ---
HPI - General Adult General Chief complaint: Abdominal Pain Stated complaint: Gallstones flare up x 1 day Time Seen by Provider: 11/23/24 12:31 Source: patient Mode of arrival: Family Vehicle History of Present Illness HPI narrative: Pleasant 79-year-old man comes to the ER with nonspecific complaints of generalized feeling like his skin is more sensitive than usual and a little bit of a headache. The reason that this is so concerning to him is because he states that he had these symptoms prior to a previous biliary obstruction. However at that time he also had nausea vomiting and fevers and abdominal pain which he has none of today. He also denies any chest pain, shortness of breath, lightheadedness, changes in vision hearing speech or swallowing or any numbness tingling or weakness of any other part of the body. He has no other concerns or complaints at this time. Related Data Home Medications ?Medication ?Instructions ?Recorded ?Confirmed cholecalciferol (vitamin D3) 50 50 mcg PO DAILY 06/04/20 10/25/24 mcg (2,000 unit) capsule multivitamin 1 tab PO DAILY 06/04/20 10/25/24 Lacto.acidophilus-Bif.animalis 1 cap PO DAILY 10/23/21 10/25/24 [Daily Probiotic] magnesium oxide 400 mg PO DAILY 10/23/21 10/25/24 aspirin 81 mg tablet,delayed 81 mg PO DAILY Cardiac stent 08/29/23 10/25/24 release (Sumit Low Dose Aspirin) 08-14-23 ticagrelor 90 mg tablet (Brilinta) 90 mg PO BID Cardiac stent placed 08/29/23 10/25/24 08-14-23 coQ10 (ubiquinol) 100 mg capsule 100 mg PO DAILY 01/19/24 10/25/24 (Qunol Mason CoQ10) losartan 50 mg tablet 50 mg PO DAILY 01/19/24 10/25/24 metoprolol succinate 25 mg 25 mg PO DAILY 01/19/24 10/25/24 tablet,extended release 24 hr Previous Rx's ?Medication ?Instructions ?Recorded finasteride 5 mg tablet 5 mg PO QDAY #90 tabs 07/16/24 Allergies Allergy/AdvReac Type Severity Reaction Status Date / Time lobster Allergy Intermediate Vomiting Verified 11/23/24 11:57 Patient History Medical History Paroxysmal atrial fibrillation Transaminitis Eczematous dermatitis Atrial fibrillation History of UTI Urinary retention Enlarged prostate Hypothyroidism Gallbladder disease Cough Shortness of breath Chills Fever Hypothyroidism (01/17/15) Hypertension (01/17/15) Benign prostatic hyperplasia (01/17/15) Surgical History H/O knee surgery (~1959) H/O cardiac radiofrequency ablation (~08/2017) History of tonsillectomy (~195) Family History Brother Age: 81 Heart disease Hypertension High cholesterol Stroke Father Heart disease High cholesterol Grandfather Stroke Grandmother Dementia Mother Heart disease Hypertension High cholesterol Grandmother TB (tuberculosis) Alcoholic Sister Age: 79 Hypertension Sister Age: 66 Hypertension Social History marital status: household members: spouse alcohol intake: never substance use type: does not use alcohol intake frequency: a few times a week Exam Initial Vital Signs Initial Vital Signs: Vital Signs Temperature 98.6 F 11/23/24 11:57 Pulse Rate 82 11/23/24 11:57 Respiratory Rate 16 11/23/24 11:57 Blood Pressure 136/87 11/23/24 11:57 Pulse Oximetry 97 11/23/24 11:57 Oxygen Delivery Method Room Air 11/23/24 11:57 Const General: No acute distress and No in distress [facility] Head: normocephalic and atraumatic Eyes General: Yes appearance normal, both eyes and all related structures Resp Effort & Inspection: normal respiratory effort and no respiratory distress Auscultation: clear to auscultation bilaterally Cardio Rate: regular rate Rhythm: regular rhythm Heart Sounds: S1 normal and S2 normal GI Inspection: normal to inspection Palpation: soft and No tender Auscultation: normal bowel sounds Course Course Course Narrative: Patient seen and examined upon arrival in the ER. His laboratory evaluation was essentially unremarkable and despite his symptoms being similar to his previous symptoms there was no labs or any concerning findings on his exam to justify any further workup of any abdominal problem or any other issue. Therefore, I advised him to return to the ER for any change or worsening in his condition, and otherwise to follow up with his PCP as soon as possible. The patient was in agreement with this plan. Orders Ordered: ED Orders 11/23/24 12:04 EKG-12 Lead Stat 11/23/24 12:21 Complete Blood Count AUTO DIFF Stat Comprehensive Metabolic Panel Stat Lipase Stat Procalcitonin Stat 11/23/24 17:58 Respiratory Panel (Film Array) Stat Ondansetron HCl (Ondansetron 4 Mg/2 Ml Inj) 4 mg IV NOW PRN PRN Reason: Nausea And Vomiting Ondansetron HCl (Ondansetron 4 Mg Odt) 4 mg PO NOW PRN PRN Reason: Nausea And Vomiting Vital Signs Vital signs: Vital Signs - 8 hr 11/23/24 11:57 11/23/24 14:42 11/23/24 14:43 Temperature 98.6 F Pulse Rate 82 75 76 Respiratory Rate 16 Blood Pressure 136/87 Pulse Oximetry 97 99 98 Oxygen Delivery Method Room Air 11/23/24 14:43 11/23/24 15:00 11/23/24 15:00 Temperature Pulse Rate 77 Respiratory Rate Blood Pressure 169/84 H 146/83 H Pulse Oximetry 98 Oxygen Delivery Method 11/23/24 15:30 11/23/24 15:30 11/23/24 16:00 Temperature Pulse Rate 77 Respiratory Rate Blood Pressure 134/85 135/87 Pulse Oximetry 97 Oxygen Delivery Method 11/23/24 16:00 11/23/24 16:30 11/23/24 16:30 Temperature Pulse Rate 76 80 Respiratory Rate Blood Pressure 153/92 H Pulse Oximetry 97 97 Oxygen Delivery Method 11/23/24 17:00 11/23/24 17:00 Temperature Pulse Rate 82 Respiratory Rate Blood Pressure 159/91 H Pulse Oximetry 97 Oxygen Delivery Method Medical Decision Making Lab Data 11/23/24 12:21 11/23/24 12:21 Labs: Lab Results 11/23/24 Range/Units 12:21 WBC 6.8 (4.5-11.0) X10^3/uL RBC 4.84 (4.5-5.9) X10^6/uL Hgb 13.6 (13.5-17.5) g/dL Hct 39.9 L (41-53) % MCV 82.5 (80-100) fL MCH 28.1 (26-34) PG MCHC 34.0 (30-36) % RDW 14.5 (11.6-14.8) % Plt Count 61 L (150-400) X10^3/uL Neut % (Auto) 79.3 H (50-75) % Lymph % (Auto) 7.0 L (25-40) % [place] % (Auto) 13.2 (3-14) % Eos % (Auto) 0.3 L (2-4) % Baso % (Auto) 0.2 (0-2) % Neut # (Auto) 5400 (0062-0656) /uL Lymph # (Auto) 500 L (7208-8129) /uL [place] # (Auto) 900 (0-900) /uL Eos # (Auto) 0 (0-450) /uL Baso # (Auto) 0 (0-100) /uL Sodium 137 (137-145) mmol/L Potassium 4.0 (3.4-5.1) mmol/L Chloride 103 (98-107) mmol/L Carbon Dioxide 25 (22-32) mmol/L BUN 22 H (9-20) mg/dL Creatinine 1.18 (0.66-1.25) mg/dL Estimated GFR > 60 (>60) mL/min BUN/Creatinine Ratio 18.6 (6-22) Glucose 108 H (70-99) mg/dL Calcium 9.3 (8.4-10.2) mg/dL Total Bilirubin 0.5 (0.2-1.3) mg/dL AST 30 (17-59) IU/L ALT 22 (<50) IU/L Alkaline Phosphatase 65 (38-126) U/L Total Protein 7.3 (6.3-8.2) g/dL Albumin 4.5 (3.5-5.0) g/dL Globulin 2.8 (1.7-4.1) g/dL Albumin/Globulin Ratio 1.6 (1.0-2.8) Lipase 103 (23-300) U/L Urine Dip Bedside Urine Glucose Negative Bedside Urine Bilirubin - Negative Bedside Urine Ketone - Negative Urine Specific [place] 1.015 Bedside Urine Occult Blood - Negative Bedside Urine pH 6.0 Bedside Urine Protein - Negative Bedside Urine Urobilinogen - Negative Bedside Urine Nitrite - Negative Bedside Urine Leukocytes - Negative Esterase Point of care testing: Urine Dip Bedside Urine Glucose Negative Bedside Urine Bilirubin - Negative Bedside Urine Ketone - Negative Urine Specific [place] 1.015 Bedside Urine Occult Blood - Negative Bedside Urine pH 6.0 Bedside Urine Protein - Negative Bedside Urine Urobilinogen - Negative Bedside Urine Nitrite - Negative Bedside Urine Leukocytes - Negative Esterase ECG Data Interpretation: NSR RBBB rate 76 Discharge Plan Departure Patient Disposition: Home Clinical Impression: History of acute cholecystitis Activity Restrictions/Additional Instructions: Return to the ER for any change or worsening in her condition such as fever, chills, sweats, abdominal pain, nausea, vomiting, diarrhea, or fevers. Otherwise, please follow-up with your doctor as soon as possible. Prescriptions: No Action finasteride 5 mg tablet 5 mg PO QDAY Qty: 90 0RF magnesium oxide 400 mg magnesium tablet 400 mg PO DAILY Lacto.acidophilus-Bif.animalis [Daily Probiotic] 1 cap PO DAILY aspirin [Sumit Low Dose Aspirin] 81 mg tablet,delayed release (DR/EC) 81 mg PO DAILY Patient Comments: Not delayed release! Brilinta 90 mg tablet 90 mg PO BID coQ10 (ubiquinol) [Qunol Mason CoQ10] 100 mg capsule 100 mg PO DAILY metoprolol succinate 25 mg tablet extended release 24 hr 25 mg PO DAILY losartan 50 mg tablet 50 mg PO DAILY cholecalciferol (vitamin D3) 50 mcg (2,000 unit) capsule 50 mcg PO DAILY multivitamin Tablet 1 tab PO DAILY Referrals: Emile Valdes MD [Primary Care Provider, Family Practice] - As soon as possible Stand Alone Forms: Patient Portal/API
[2024-11-23 18:33] LABS: Procalcitonin 0.357 ng/mL (<0.5)
--- NOTE | 2024-11-23 18:34 | PC.NURSE ---
made aware of pt temp 100.7. ok for dc. rn or md will call pt with results of resp swab
[2024-11-23 18:55] LABS: Coronavirus NL 63 Not Detected (Not Detect); SARS- CoV-2 Not Detected (Not Detecte)
--- NOTE | 2024-11-23 19:58 | PC.NURSE ---
Call to patient to review labs. No further questions at this time.
== END 2024-11-23 18:33 | disposition home or self-care (01) ==
PROVIDERS: Emergency Provider Emergency Medicine; Family Provider Family Medicine; PCP Family Medicine
DX: Z87.19 Personal history of other diseases of the digestive system (principal); R10.9 Unspecified abdominal pain; R51.9 Headache, unspecified
CPT/HCPCS: 36415; 80053; 81003; 83690; 84145; 85025; 87633; 93005; 93010; 99284

== ENCOUNTER → 2025-04-22 09:42 | Outpatient (CLI) | payer MEDICARE, OTHER, SELFPAY ==
--- NOTE | 2025-04-22 10:37 | DI.RAD.S_ITS ---
PROCEDURE: XR CHEST 2V INDICATIONS: short of breath TECHNIQUE: 2 views of the chest were acquired. COMPARISON: [facility], CR, XR CHEST 1V, 09/10/2023, 13:36. FINDINGS: Mild bilateral perihilar and lower lobe peribronchial thickening, some of which may be related expiratory result; however, bronchitis, viral infection, asthma or other process should be considered. Cardiopericardial silhouette and pulmonary vasculature within normal limits. No pneumothorax, no pleural effusion, no focal consolidation. Degenerative changes of the thoracic spine and shoulders noted. The right distal clavicle appears cephalad displaced in relation to the acromion may be related to prior AC joint separation, new compared to the prior exam which has occurred in the interval. IMPRESSION: Peribronchial thickening as discussed above. Right AC joint separation which may be chronic. If symptoms persist or worsen, or there is high clinical suspicion of thoracic abnormality, CT chest could be performed. Dictated by: Faustino Cervantes M.D. on 04/23/2025 at 13:48 Approved by: Faustino Cervantes M.D. on 04/23/2025 at 13:52
== END ==
LOC: RESP 09:44
PROVIDERS: Family Provider Family Medicine; PCP Family Medicine; Referring Provider Family Medicine; Visit Provider Family Medicine
DX: R06.02 Shortness of breath (principal); Z87.891 Personal history of nicotine dependence; R94.2 Abnormal results of pulmonary function studies; R91.8 Other nonspecific abnormal finding of lung field
CPT/HCPCS: 71046; 94010; 94726; 94729

== ENCOUNTER → 2025-05-01 08:53 | Outpatient (CLI) | payer MEDICARE, OTHER, SELFPAY ==
[2025-05-01 09:51] LABS: Hematocrit 40.5 % (41-53); Hemoglobin 13.6 g/dL (13.5-17.5); Mean Corpuscular HGB Conc 33.6 % (30-36); Mean Corpuscular Hemoglobin 26.8 PG (26-34); Mean Corpuscular Volume 79.7 fL (80-100); Platelet Count 103 X10^3/uL (150-400)
[2025-05-01 09:52] LABS: Add Manual Diff / Slide Review YES
[2025-05-01 10:20] LABS: Alanine Aminotransferase 20 IU/L (<50); Albumin 4.6 g/dL (3.5-5.0); Albumin Globulin Ratio 1.7 (1.0-2.8); Alkaline Phosphatase 62 U/L (38-126); Blood Urea Nitrogen 24 mg/dL (9-20); Calcium 9.5 mg/dL (8.4-10.2); Carbon Dioxide 28 mmol/L (22-32); Chloride 104 mmol/L (98-107); Cholesterol 263 mg/dL (140-199); Estimated Glomerular Filt Rate 58 mL/min (>60); Globulin 2.7 g/dL (1.7-4.1); Glucose 100 mg/dL (70-99); HDL Cholesterol 56 mg/dL (40-60); HEMOLYSIS < 15 (0-50); Potassium 4.7 mmol/L (3.4-5.1); Sodium 140 mmol/L (137-145); Total Protein 7.3 g/dL (6.3-8.2); Triglycerides 163 mg/dL (35-150)
[2025-05-01 10:51] LABS: TSH w/ Reflex to FT4 9.34 uIU/mL (0.47-4.68)
[2025-05-01 11:19] LABS: Anisocytosis 1+; Band Neutrophils Percent 1.0 % (3-7); Eosinophils Percent Manual 6.0 % (2-4); Lymphocytes Percent Manual 31.0 % (25-45); Microcytosis 1+; Monocytes Percent Manual 14.0 % (2-11); Neutrophils Absolute Manual 2352 /uL (3000-5900); Segmented Neutrophils Percent 48.0 % (38-70); Total Cells Counted 100
[2025-05-01 11:50] LABS: Free T4, Direct Thyroxine 0.88 ng/dL (0.78-2.19)
== END ==
PROVIDERS: Family Provider Family Medicine; PCP Family Medicine; Referring Provider Family Medicine; Visit Provider Family Medicine
DX: Z12.5 Encounter for screening for malignant neoplasm of prostate (principal); R74.8 Abnormal levels of other serum enzymes; R97.20 Elevated prostate specific antigen [PSA]; I25.10 Atherosclerotic heart disease of native coronary artery without angina pectoris; I10 Essential (primary) hypertension; E78.2 Mixed hyperlipidemia; D69.6 Thrombocytopenia, unspecified; Z86.79 Personal history of other diseases of the circulatory system
CPT/HCPCS: 80053; 80061; 84439; 84443; 85007; 85025; G0103

== ENCOUNTER → 2025-05-02 09:43 | Outpatient (CLI) | payer MEDICARE, OTHER, SELFPAY ==
--- NOTE | 2025-05-02 09:46 | DI.CT.S_ITS ---
PROCEDURE: CT CHEST W CON INDICATIONS: abnormal CXR TECHNIQUE: After the administration of intravenous contrast, 5 mm thick sections acquired from the pulmonary apices to the posterior costophrenic angles. 1 mm axial lung, 5 mm thick coronal and sagittal reformats and 7 mm axial MIP were acquired. For radiation dose reduction, the following was used: automated exposure control, adjustment of mA and/or kV according to patient size. COMPARISON: None. FINDINGS: Image quality: Diagnostic. Lower Neck: No enlarged lymph nodes. Thyroid: No thyroid nodules which require sonographic follow up, per consensus guidelines. Axillae: No enlarged lymph nodes. Chest Wall: Unremarkable. Bones: Unremarkable. Lungs and Pleura: No pneumothorax or pleural effusions. No consolidation or suspicious nodules. Emphysematous changes. Heart: Heart size is normal. No pericardial effusion. Mild coronary artery calcifications. Thoracic Vessels: The aorta and pulmonary arteries demonstrate normal size. Mediastinum and Jessica: No enlarged lymph nodes. Esophagus: No wall thickening. No hiatal hernia. Upper Abdomen: Visualized upper abdomen solid organs and bowel loops appear normal. IMPRESSION: Mild emphysematous changes. No consolidation or suspicious nodules. Approved by: Mirtha Engel M.D.,Ph.D. on 05/03/2025 at 21:14
== END ==
PROVIDERS: Family Provider Family Medicine; PCP Family Medicine; Referring Provider Family Medicine; Visit Provider Family Medicine
DX: R06.02 Shortness of breath (principal); R93.89 Abnormal findings on diagnostic imaging of other specified body structures; I25.10 Atherosclerotic heart disease of native coronary artery without angina pectoris
CPT/HCPCS: 71260; Q9967